=== PATIENT | male | born 1990 | race Two or more races ===

== ENCOUNTER 2024-11-30 04:40 | Inpatient (IN) | payer MEDICAID, SELFPAY ==
[2024-11-30] VITALS (40 sets, daily range): BP systolic 121–169; BP diastolic 73–104; PULSE 87–120; RESP 12–28; TEMP 36.8–38.4; O2SAT 90–99; BMI 36.6
--- NOTE | 2024-11-30 05:03 | XR_ITS ---
Examination: Abdomen sonogram, Limited Date and time of exam: November 30, 2024 0537 hours INDICATIONS: Right upper abdominal pain beginning yesterday Technique: Real-time chavez scale transabdominal sonographic images of the upper abdomen obtained. Findings: Normal gallbladder Normal common bile duct 0.3 cm Pancreas obscured by bowel gas Liver 18 cm fatty infiltration Normal hepatopedal portal venous flow Patent IVC IMPRESSION: Normal gallbladder. Normal common bile duct. Hepatomegaly with fatty liver
--- NOTE | 2024-11-30 05:04 | EDRME_ITS ---
Rapid Medical Screening Exam [facility] Arrival date/time: 11/30/24 04:40 34M with history of HLD and pancreatitis presents to ED with 2 days of RUQ/epigastric pain and N/V. Patient states this feels similar to his last pancreatitis episode. Patient only takes his HLD meds when he remembers. Chief Complaint: Abdominal Pain Vital signs: Vital Signs Temperature 100.0 F 11/30/24 04:53 Pulse Rate 93 11/30/24 04:53 Respiratory Rate 17 11/30/24 04:53 Blood Pressure 141/87 H 11/30/24 04:53 Pulse Oximetry (%) 97 11/30/24 04:53 Oxygen Delivery Method Room Air 11/30/24 04:53
[2024-11-30 05:33] LABS: Lactate (Lactic Acid) 1.2 mMol/L (0.4-2.0)
[2024-11-30 06:00] LABS: Basophils # (Auto) 0.1 Thou/mm3 (0.0-0.2); Basophils % (Auto) 0 % (0-2.5); Eosinophils # (Auto) 0.2 Thou/mm3 (0.0-0.5); Eosinophils % (Auto) 2 % (0-10); Hematocrit 43.1 % (41.0-53.0); Hemoglobin 15.1 g/dL (13.5-16.0); Immature Granulocytes % (Auto) 0 % (0-0); Immature Granulocytes Auto 0.05 Thou/mm3 (0.00-0.00); Lymphocytes # (Auto) 1.6 Thou/mm3 (1.0-4.8); Lymphocytes % (Auto) 11 % (10-50); Mean Corpuscular Hemoglobin 31.8 pg (25.0-35.0); Mean Corpuscular Volume 91 fL (80-100); Monocytes # (Auto) 1.4 Thou/mm3 (0.0-0.8); Monocytes % (Auto) 10 % (0-12); Neutrophils # (Auto) 10.8 Thou/mm3 (1.8-7.7); Neutrophils % (Auto) 76 % (37-80); Nucleated Red Blood Cell % 0 /100 WBC (0); Platelet Count 197 Thou/mm3 (140-440); RDW Standard Deviation 40.6 fL (35.1-43.9); Red Blood Count 4.75 Miln/mm3 (4.50-5.90); White Blood Count 14.2 Thou/mm3 (3.8-10.6)
[2024-11-30] MEDS: RINGERS LACTATED 1000 ML 1,000 ML 999 ML IV ×2 (06:14→10:26)
[2024-11-30] MEDS: MORPHINE SULF INJ 10 MG/ML VIAL 5 MG IVP (06:15)
[2024-11-30] MEDS: ONDANSETRON INJ 2 MG/ML INJ 2 ML 4 MG IVP (06:15)
[2024-11-30 06:27] LABS: Alanine Aminotransferase 25 U/L (10-49); Albumin, Serum 4.6 gm/dL (3.5-5.0); Albumin/Globulin Ratio 1.7 (1.2-2.2); Alcohol, Blood Medical < 3.0 mg/dL (0-10.0); Alkaline Phosphatase 110 U/L (46-116); Anion Gap 16 (7-16); Aspartate Amino Transferase 29 U/L (0-34); BUN/Creatinine Ratio 8 Ratio (12-20); Bilirubin,Total 0.9 mg/dL (0.3-1.2); Blood Urea Nitrogen 8 mg/dL (9-23); Chloride 103 mMol/L (98-107); Globulin 2.7 gm/dL (2.3-3.5); Glucose 109 mg/dL (74-106); Lipase 120 U/L (12-53); Osmolality,Calculated 278 (275-295); Potassium 4.5 mMol/L (3.4-5.1); Procalcitonin 0.09 ng/ml (0.0-0.49); Sodium 140 mMol/L (136-145); Total Protein 7.3 gm/dL (5.7-8.2); Triglycerides 1582 mg/dL (30-150); eGFR > 60 See Note
--- NOTE | 2024-11-30 07:04 | PD.EDADULT ---
ED General RME/HPI General Chief complaint: Abdominal Pain Stated complaint: ABD PAIN Time Seen by Provider: 11/30/24 06:53 Arrival date/time: 11/30/24 04:40 RME / HPI RME / HPI narrative: 11/30/24 04:40 34M with history of HLD and pancreatitis presents to ED with 2 days of RUQ/epigastric pain and N/V. Patient states this feels similar to his last pancreatitis episode. Patient only takes his HLD meds when he remembers. DR. PEBBLES BEYER ED EVALUATION: 34 year old male with past medical history significant for hyperlipidemia and pancreatitis 3 years ago presents to the Emergency Department with complaint of upper abdominal pain with associated nausea and vomiting. No other symptoms reported at this time. Related Data Previous Rx's ?Medication ?Instructions ?Recorded atorvastatin 40 mg tablet 40 mg PO QPM #30 tabs 04/03/22 gemfibrozil 600 mg tablet 600 mg PO BID #60 tabs 04/03/22 Allergies Allergy/AdvReac Type Severity Reaction Status Date / Time No Known Allergies Allergy Verified 11/30/24 04:41 Review of Systems Review of Systems Systems Reviewed: All systems reviewed, normal except as documented Narrative Review of Systems: GEN: No fever, no chills, no weight loss EYES: No discharge, no visual changes, no pain HEENT: No ear pain, no congestion, no sore throat PULM: No shortness of breath, no cough, no congestion CV: No chest pain, no dyspnea on exertion, no palpitations GI: + nausea, + vomiting, no diarrhea, + upper abdominal pain, no constipation : No frequency, no urgency and no dysuria MUSC/SKEL: No joint pain, no back pain SKIN: No rash PSYCH: No hallucinations, no depression HEME/LYMPH: No easy bleeding or bruising tendencies NEURO: No weakness, no headache Past Medical History Social History SMOKING STATUS: Never smoker SUBSTANCE USE: does not use ALCOHOL: Never Past Medical History Comments PMH COMMENT: Hyperlipidemia and pancreatitis 3 years ago. ED Exam Narrative Physical exam: GENERAL APPEARANCE: AxOx4, generally well-appearing, no acute distress. HEENT: NC, AT. MMM. EOMI, clear conjunctiva, oropharynx clear. NECK: Supple without lymphadenopathy. No stiffness or restricted ROM. HEART: Normal rate and regular rhythm, normal S1/S1, no m/r/g LUNGS: CTAB, moving air well. No crackles or wheezes are heard. ABDOMEN: Soft, nontender, nondistended with good bowel sounds heard. BACK: No midline C/T/L spine pain or deformity, No CVAT, no obvious deformity. EXTREMITIES: Without cyanosis, clubbing or edema. MUSCULOSKELETAL: FROM of all major joints, no chest tenderness NEUROLOGICAL: Grossly nonfocal. Alert and oriented, moving all 4 extremities. CN not formally tested but appear grossly intact. Observed to ambulate with normal gait. Skin: Warm and dry without any rash. Course Quality Measures none Orders Category Date Time Status Admit to Inpatient Status Routine Admission 11/30/24 09:36 Active Patient Condition Routine Admission 11/30/24 09:36 Ordered Bedside Blood Glucose Q1HR Care 11/30/24 09:39 Active Clear Liquid Diet - Advance as Tolerated Routine Care 11/30/24 09:42 Ordered IV [Insert IV] STAT Care 11/30/24 06:13 Completed NPO NOW Care 11/30/24 09:37 Active Notify provider NEEDED Care 11/30/24 09:39 Active Notify provider NEEDED Care 11/30/24 09:39 Completed Consult to [employer] Work[employer] Stat Cons 11/30/24 08:15 Ordered Diet Clear Liquid Diet 11/30/24 Lunch Active Diet NPO (NOW) Diet 11/30/24 09:37 Completed US gall bladder Stat Exams 11/30/24 05:03 Completed Alcohol, Blood Medical Stat Lab 11/30/24 05:18 Completed CBC DAILY Lab 12/02/24 09:00 Ordered CBC DAILY Lab 12/03/24 09:00 Ordered CBC DAILY Lab 12/04/24 09:00 Ordered CBC DAILY Lab 12/05/24 09:00 Ordered CBC DAILY Lab 12/06/24 09:00 Ordered CBC Stat Lab 11/30/24 05:18 Completed CMP [Comprehensive Metabolic Panel] Stat Lab 11/30/24 05:18 Completed Comprehensive Metabolic Panel DAILY Lab 12/02/24 09:00 Ordered Comprehensive Metabolic Panel DAILY Lab 12/03/24 09:00 Ordered Comprehensive Metabolic Panel DAILY Lab 12/04/24 09:00 Ordered Comprehensive Metabolic Panel DAILY Lab 12/05/24 09:00 Ordered Comprehensive Metabolic Panel DAILY Lab 12/06/24 09:00 Ordered Lactate (Lactic Acid) Stat Lab 11/30/24 05:18 Completed Lipase Stat Lab 11/30/24 05:18 Completed Potassium Q8H Lab 11/30/24 11:30 Completed Potassium Q8H Lab 11/30/24 17:45 Ordered Potassium Q8H Lab 12/01/24 01:45 Ordered Potassium Q8H Lab 12/01/24 09:45 Ordered Procalcitonin Stat Lab 11/30/24 05:18 Completed Triglycerides Q12H Lab 11/30/24 11:30 Completed Triglycerides Q12H Lab 11/30/24 21:45 Ordered Triglycerides Q12H Lab 12/01/24 09:45 Ordered Triglycerides Stat Lab 11/30/24 05:18 Completed Dextrose 10%-Water 1000 ml [D10w 1000 ml] 1,000 ml Med 11/30/24 09:45 Discontinued IV 75 mls/hr Dextrose 50% Syr [D50w Syringe Abboject] Med 11/30/24 09:38 Active 25 ml IV Q15MIN PRN Dextrose 50% Syr [D50w Syringe Abboject] Med 11/30/24 09:38 Active 50 ml IV Q15MIN PRN Enoxaparin [Lovenox] Med 11/30/24 09:45 Active 40 mg SC QDAY Glucagon Inj Med 11/30/24 09:38 Active 1 mg IM QDAY PRN HYDROmorphone INJ [Dilaudid Inj] Med 11/30/24 09:36 Active 0.25 mg IVP Q4HR PRN Insulin Reg 100 Units/100 ml [Myxredlin] Med 11/30/24 09:45 Active 100 unit in 100 ml IV 0.1 unit/kg/hr Morphine Inj Med 11/30/24 05:03 Discontinued 5 mg IVP X1 ONE Ondansetron Inj [Zofran Inj] Med 11/30/24 05:03 Discontinued 4 mg IVP X1 ONE Ringers Lactated 1000 ml [Lactated Ringers] 1,000 ml Med 11/30/24 05:03 Discontinued IV 999 mls/hr Ringers Lactated 1000 ml [Lactated Ringers] 1,000 ml Med 11/30/24 09:42 Discontinued IV 999 mls/hr Code Status Routine Oth 11/30/24 09:36 Ordered Oxygen Delivery PRN RT 11/30/24 09:36 Active Vital Signs Vital signs: Vital Signs Temperature 100.0 F 11/30/24 04:53 Pulse Rate 93 11/30/24 04:53 Respiratory Rate 17 11/30/24 04:53 Blood Pressure 141/87 H 11/30/24 04:53 Pulse Oximetry (%) 97 11/30/24 04:53 Oxygen Delivery Method Room Air 11/30/24 04:53 Discharge Plan Plan Patient Disposition: Admit Acute Care w/in Hospital Discharge Disposition comment: ICU Problem List Clinical Impression: Acute pancreatitis MDM Narrative MDM hospital course: I, Ynes An am scribing for and in the presence of Dr. Dimas. Clinical Information Provided by patient Medical Records Reviewed [facility] Reviewed last admission discharge dated 04/03/22, patient admitted for the following: Pancreatitis Meds/Rx Considered, not Ordered None Labs/Rad/Tests considered, not Ordered None Chronic Illness/Social Conditions Add or document further as needed: Hyperlipidemia and pancreatitis 3 years ago. Lab Interpretation Labs: interpreted by me Imaging Radiology reports / interpretation(s): Procedure(s): US gall bladder Accession Number(s): [id number] cc: Alex Sloan MD; Landon Boles MD; Vinh Wells PA-C~ Examination: Abdomen sonogram, Limited Date and time of exam: November 30, 2024 0537 hours INDICATIONS: Right upper abdominal pain beginning yesterday Technique: Real-time chavez scale transabdominal sonographic images of the upper abdomen obtained. Findings: Normal gallbladder Normal common bile duct 0.3 cm Pancreas obscured by bowel gas Liver 18 cm fatty infiltration Normal hepatopedal portal venous flow Patent IVC IMPRESSION: Normal gallbladder. Normal common bile duct. Hepatomegaly with fatty liver Dictated By: Landon Boles MD Medication Administration(s) Medication Administration History Dextrose (Dextrose 50%-Water Inj 50 Ml Syringe) 25 ml IV Q15MIN PRN PRN Reason: Blood sugar between 50- 69 mg/dL Stop: 12/30/24 09:37 Dextrose (Dextrose 50%-Water Inj 50 Ml Syringe) 50 ml IV Q15MIN PRN PRN Reason: Blood sugar less than 50 mg/dL Stop: 12/30/24 09:37 Enoxaparin Sodium (Enoxaparin Sod Inj 40 Mg/0.4 Ml Syringe) 40 mg SC QDAY JESI Stop: 12/14/24 09:44 Last Admin: 11/30/24 10:12 Dose: 40 mg Documented By: CG Glucagon (Glucagon Inj 1 Mg Vial) 1 mg IM QDAY PRN PRN Reason: Blood sugar less than 70 mg/dL Stop: 12/30/24 09:37 Hydromorphone HCl (Hydromorphone Inj 2 Mg/Ml Vial) 0.25 mg IVP Q4HR PRN PRN Reason: PAIN Stop: 12/05/24 09:35 Last Admin: 11/30/24 10:39 Dose: 0.25 mg Documented By: CG Insulin Human Regular (Myxredlin) 100 unit in 100 mls @ 9.979 mls/hr IV .Q10H2M JESI Stop: 12/30/24 09:44 Last Admin: 11/30/24 12:01 Dose: 0.1 unit/kg/hr, 9.979 mls/hr Documented By: HR Co-signed By: ER Dextrose (D10w 1000 Ml) 1,000 mls @ 150 mls/hr IV .Q6H40M JESI Stop: 11/30/24 17:07 Last Admin: 11/30/24 12:03 Dose: 150 mls/hr Documented By: HR Discontinued Medications Lactated Ringer's (Lactated Ringers) 1,000 mls @ 999 mls/hr IV .Q1H1M ONE Stop: 11/30/24 06:03 Last Infusion: 11/30/24 07:55 Dose: Infused Documented By: Admin: 11/30/24 06:14 Dose: 999 mls/hr Documented By: CB Dextrose (D10w 1000 Ml) 1,000 mls @ 75 mls/hr IV .[id number] JESI; Protocol Stop: 12/30/24 09:44 Last Admin: 11/30/24 10:09 Dose: 75 mls/hr Documented By: CG Lactated Ringer's (Lactated Ringers) 1,000 mls @ 999 mls/hr IV .Q1H1M ONE Stop: 11/30/24 10:42 Last Infusion: 11/30/24 11:06 Dose: Infused Documented By: Admin: 11/30/24 10:26 Dose: 999 mls/hr Documented By: CG Dextrose (D10w 1000 Ml) 1,000 mls @ 150 mls/hr IV .Q6H40M JESI; Protocol Stop: 12/30/24 10:33 Morphine Sulfate (Morphine Sulf Inj 10 Mg/Ml Vial) 5 mg IVP X1 ONE Stop: 11/30/24 05:04 Last Admin: 11/30/24 06:15 Dose: 5 mg Documented By: CAILIN Ondansetron HCl (Ondansetron Inj 2 Mg/Ml Inj 2 Ml) 4 mg IVP X1 ONE; Protocol Stop: 11/30/24 05:04 Last Admin: 11/30/24 06:15 Dose: 4 mg Documented By: CAILIN Consultations/Discussions re: Management Consult #1: Date/time: 11/30/24 10:19 am Physician, specialty, service, details: Discussed test HPI, PMHx, lab, radiology results and/or management with transitions manager Dr. Bruno. Will admit for further evaluation and management. Accepts patient for admission. Diagnosis Differential diagnosis: acute pacreatitis, chronic pacreatitis, hyperlipidemia Most likely dx, and/or detailed dx discussion: Acute pancreatitis Dispositon Disposition: Admit (ICU)
--- NOTE | 2024-11-30 09:56 | ESHP_ITS ---
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 According to the patient he woke up at midnight with abdominal pain and had a bowel move. After epigastric, initially 6 out of 10 pain progressively worsened and radiated to the left upper quadrant as well. No relief by ibuprofen. Patient also endorses nausea and a temperature of 102F at home, sick contacts but denied any vomiting, diarrhea, recent travel, new medication, scorpion bites, new sexual partners and trauma to his abdomen. Of note patient said over the weekend he drank a 12 pack of beers and ate a lot of carnitas. He also says that his diet usually consists of a lot of fried, fatty foods and in the past 2 days he eats approximately 20 dragon fruits. In 2021 he was admitted to the ICU for hypertriglyceridemia induced pancreatitis and at this time he was diagnosed with hypertriglyceridemia. ED course: BP 124/83, pulse 90, RR 18, temp 98.3 F, SpO2 97% on room air WBC 14.2, glucose 109, triglycerides 1582, lipase 120, lactic acid 1.2, corrected calcium 9. Gallbladder ultrasound showed normal gallbladder, no signs of cholecystitis, hepatomegaly with fatty liver. Pancreas obscured by bowel gas. In the ED patient received 1L LR IVF bolus, morphine 5 Mg IV x 1 Mg IV x 1 Patient will be admitted to the ICU for treatment and management of hypertriglyceridemia pancreatitis. Review of Systems Review of Systems Narrative Review of Systems: GENERAL: Denies fever/chills or diaphoresis. HEENT: Denies headaches or visual changes. Denies discharge. Neuro: Denies unusual weakness or difficulty speaking. CARDIO: Denies chest pain or palpitations. PULM: Denies SOB, coughing or wheezing. GI: As above URO: Denies burning/itching/pain/urinary changes. MSK/EXT/SKIN: Denies joint/skeletal/muscle pain, issues/changes in upper or lower extremities, itchiness, or superficial pain. PSYCH: Cooperative, pleasant mood & affect. The rest of the review of systems is otherwise negative. Past Medical History Past Medical History Comments PMH COMMENT: Past medical history: Hypertriglyceridemia Hyperlipidemia History of hypertriglyceridemia pancreatitis with an ICU admission - 2021 Medication list: NIL Previously was on atorvastatin 40 Mg daily every afternoon and Wegovy. 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 Family History: Mom?hypertriglyceridemia Exam Vital Signs Temp Pulse Resp BP Pulse Ox O2 Del Method 98.3 F 90 18 124/83 97 Room Air 11/30/24 08:32 11/30/24 08:32 11/30/24 08:32 11/30/24 08:32 11/30/24 08:32 11/30/24 08:32 Narrative Exam Constitutional Alert, oriented x 3 and comfortable. Young male HEENT Vision grossly intact. Patent nares. Trachea midline Respiratory Chest normal on inspection and clear auscultation bilaterally on anterior and posterior chest Cardiovascular S1 and S2 audible, RRR. No murmurs carotid bruit. No gross JVD. Abdominal Soft, obese and tender to light palpation epigastrium and left upper quadrant. No guarding or rebound tenderness. Bowel sounds auscultated Genitourinary No bladder tenderness, no flank pain. Normal to palpation Musculoskeletal Extremities tone within normal limits. No LE edema. Neurological CN II - XII grossly intact. Extremity motor and sensation grossly intact. Skin Warm, dry and intact. No apparent lesions. Psychiatric Patient has good affect, is cooperative Results: Labs 11/30/24 05:18 11/30/24 11:30 Labs: Short CBC 11/30/24 Range/Units 05:18 WBC 14.2 H (3.8-10.6) Thou/mm3 Hgb 15.1 (13.5-16.0) g/dL Hct 43.1 (41.0-53.0) % Plt Count 197 (140-440) Thou/mm3 BMP 11/30/24 05:18 Sodium 140 Potassium 4.5 Chloride 103 Carbon Dioxide 21.0 BUN 8 L Creatinine 1.0 Glucose 109 H Calcium 9.0 Liver Function 11/30/24 Range/Units 05:18 Total Bilirubin 0.9 (0.3-1.2) mg/dL AST 29 (0-34) U/L ALT 25 (10-49) U/L Alkaline Phosphatase 110 (46-116) U/L Albumin 4.6 (3.5-5.0) gm/dL Quality Measures Quality Measures none Medications Home Medications and Allergies Allergies Allergy/AdvReac Type Severity Reaction Status Date / Time No Known Allergies Allergy Verified 11/30/24 04:41 Visit Medications Dextrose (Dextrose 50%-Water Inj 50 Ml Syringe) 25 ml IV Q15MIN PRN PRN Reason: Blood sugar between 50- 69 mg/dL Stop: 12/30/24 09:37 Dextrose (Dextrose 50%-Water Inj 50 Ml Syringe) 50 ml IV Q15MIN PRN PRN Reason: Blood sugar less than 50 mg/dL Stop: 12/30/24 09:37 Enoxaparin Sodium (Enoxaparin Sod Inj 40 Mg/0.4 Ml Syringe) 40 mg SC QDAY JESI Stop: 12/14/24 09:44 Glucagon (Glucagon Inj 1 Mg Vial) 1 mg IM QDAY PRN PRN Reason: Blood sugar less than 70 mg/dL Stop: 12/30/24 09:37 Hydromorphone HCl (Hydromorphone Inj 2 Mg/Ml Vial) 0.25 mg IVP Q4HR PRN PRN Reason: PAIN Stop: 12/05/24 09:35 Insulin Human Regular (Myxredlin) 100 unit in 100 mls @ 9.979 mls/hr IV .Q10H2M JESI Stop: 12/30/24 09:44 Dextrose (D10w 1000 Ml) 1,000 mls @ 75 mls/hr IV .[id number] JESI; Protocol Stop: 12/30/24 09:44 Lactated Ringer's (Lactated Ringers) 1,000 mls @ 999 mls/hr IV .Q1H1M ONE Stop: 11/30/24 10:42 Discontinued Medications Lactated Ringer's (Lactated Ringers) 1,000 mls @ 999 mls/hr IV .Q1H1M ONE Stop: 11/30/24 06:03 Last Infusion: 11/30/24 07:55 Dose: Infused Morphine Sulfate (Morphine Sulf Inj 10 Mg/Ml Vial) 5 mg IVP X1 ONE Stop: 11/30/24 05:04 Last Admin: 11/30/24 06:15 Dose: 5 mg Ondansetron HCl (Ondansetron Inj 2 Mg/Ml Inj 2 Ml) 4 mg IVP X1 ONE; Protocol Stop: 11/30/24 05:04 Last Admin: 11/30/24 06:15 Dose: 4 mg Assessment & Plan Plan Patient is a 34-year-old male with a past medical history significant for hypertriglyceridemia and 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 Patient will be admitted to the ICU for treatment and management of hypertriglyceridemia pancreatitis. NEURO No acute problems CVS No acute problems PULM No acute problems GI/Hep Hypertriglyceridemia pancreatitis History of hypertriglyceridemia Elevated Lipase Dx: Lipase 120, triglycerides 1582, lactic acid 1.2, corrected calcium 9. BISAP score; 1 point ? increasing risk of mortality. Rx: Insulin infusion, triglycerides every 12 hourly, potassium every 8 hourly, LR/D5 IVF, pain control with Dilaudid 0.25 Mg IV every 4 hourly as needed. Will recommend patient start on a fibrate +/- statin upon discharge. RRX: Once triglycerides less than 1000 and patient's pain adequately controlled, for downgrade to the floor MASLD Dx: Gallbladder ultrasound showed fatty ultrafiltration of the liver with hepatomegaly Rx: Recommend weight loss and treatment of hypertriglyceridemia RENAL No acute problems HEME/ONC Leukocytosis DDx: reactive, pancreatitis Dx: WBC 14.2 Rx: monitor CBC ENDO Obesity class II Dx:BMI 36.6. Previously patient was on Wegovy but it was discontinued by his PCP. Rx: Recommend low-fat diet and exercise. The patient unable to achieve weight loss with the above recommendations, would recommend he restart a GLP-1 as outpatient. He may also benefit from a bariatric surgery consultation ID No acute problems MSK/DERM No acute problems ICU Health maintenance: Dispo: Admit to ICU for Hypertriglyceridemia pancreatitis Diet: Clear Liquids DVT ppx: Enoxaparin 40mg SC daily GI ppx: None Mechanical ventilattion: No Sedation: NO IV lines: 2 pIV Central line: No Arterial line: No Payne: NO Code status: FULL CODE Plan of care discussed with Attending Dr. Bruno and PGY 3 Dr. Radha Sandoval MD PGY 1 Disclaimer: This note was dictated by speech recognition. Minor errors in divemaster may be present due to voice recognition software.
[2024-11-30] MEDS: DEXTROSE 10%-WATER 1000 ML 1,000 ML 75 ML IV (10:09)
[2024-11-30] MEDS: ENOXAPARIN SOD INJ 40 MG/0.4 ML SYRINGE SC (10:12)
[2024-11-30] MEDS: HYDROmorphone INJ 2 MG/ML VIAL 0.25 MG IVP ×3 (10:39→23:10)
[2024-11-30 11:49] LABS: Potassium 3.9 mMol/L (3.4-5.1)
[2024-11-30 11:55] LABS: Triglycerides 916 mg/dL (30-150)
[2024-11-30] MEDS: INSULIN REG 100 UNITS/100 ML 100 UNIT/100 ML BAG 9.979 UNIT IV ×2 (12:01→21:06)
[2024-11-30] MEDS: DEXTROSE 10%-WATER 1000 ML 1,000 ML 150 ML IV ×3 (12:03→23:54)
--- NOTE | 2024-11-30 13:56 | ESPR_ITS ---
Documentation for date of: 11/30/24 Subjective Subjective Interval history: This is a 34-year-old male who presents to the ER for abdominal pain. The patient states that his abdominal pain began approximately 2 days ago however over the last 12 hours has been pretty constant. The patient states that the pain starts in the epigastrium and is kind of diffuse from there. He states on arrival to the ER he got shooting pain to the right upper quadrant however mostly his pain is epigastric. Denies any radiation to the back to the chest or to his legs. Admits to some nausea but denies any rohan vomiting. Patient states that he has had episode of pancreatitis in the past and this pain feels similar. Notes that he was told that he had high triglycerides and cholesterol in the past however he has been off of his medications since June of this year. Also notes that he had a fever yesterday up to 102 degrees. Denies any shortness of breath, chest pain, cough, diarrhea, constipation, blood in his urine, blood in his stool or additional symptoms. In the ER labs were checked and he was noted to have an elevation in his lipase. Given his history of hypertriglyceridemia a lipid panel was also checked and he was found to have triglycerides of thousand 500. Given the concern for pancreatitis and elevated triglycerides the ICU was consulted. Of note he admits to imbibing 6-12 beers over last weekend as well as eating a significant amount of fried fatty food. This was 4 days prior to presentation. Past medical history: Dyslipidemia, pancreatitis Family history: No significant history reported Social history: Admits to alcohol consumption denies abuse, denies IVDA, lives at home with family Critical Care Note Critical care time (min.): 0 Exam Vital Signs Temp Pulse Resp BP Pulse Ox O2 Del Method 98.9 F 108 H 16 137/77 H 97 Room Air 11/30/24 12:00 11/30/24 13:07 11/30/24 13:07 11/30/24 13:11/30/24 13:11/30/24 08:32 Narrative Exam General-no acute distress, well-appearing, overweight, pleasant and cooperative with exam HEENT-normocephalic, atraumatic, sclera icteric, oral mucosa is hydrated Chest-lungs clear auscultation bilaterally, heart regular rhythmic, no bridge murmurs auscultated on exam, no increased work of breathing Abdomen-soft, generalized discomfort on deep palpation, no rebound, no guarding, no palpable organomegaly, appears to be more uncomfortable in the epigastric area, bowel sounds are present Extremities-no edema, pulses palpable, no mottling, no clubbing, moves all 4 Physical Exam Completion Physical Exam Complete?: Yes 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 Labs 11/30/24 05:18 11/30/24 11:30 Labs: Laboratory Results - last 24 hr 11/30/24 11/30/24 05:18 11:30 WBC 14.2 H RBC 4.75 Hgb 15.1 Hct 43.1 MCV 91 MCH 31.8 MCHC 35.0 RDW Std Deviation 40.6 Plt Count 197 Neut % (Auto) 76 Lymph % (Auto) 11 [place] % (Auto) 10 Eos % (Auto) 2 Baso % (Auto) 0 Neut # (Auto) 10.8 H Lymph # (Auto) 1.6 [place] # (Auto) 1.4 H Eos # (Auto) 0.2 Baso # (Auto) 0.1 Immature Gran # (Auto) 0.05 H Absolute Nucleated RBC 0.00 Immature Gran % 0 Nucleated RBC % 0 Sodium 140 Potassium 4.5 3.9 D Chloride 103 Carbon Dioxide 21.0 Anion Gap 16 BUN 8 L Creatinine 1.0 Estim Creat Clear Calc 111.0 eGFR > 60 BUN/Creatinine Ratio 8 L Glucose 109 H Calculated Osmolality 278 Lactic Acid 1.2 Calcium 9.0 Corrected Calcium 9.0 Total Bilirubin 0.9 AST 29 ALT 25 Alkaline Phosphatase 110 Total Protein 7.3 Albumin 4.6 Globulin 2.7 Albumin/Globulin Ratio 1.7 Triglycerides 1582 H 916 H Lipase 120 H Procalcitonin 0.09 Ethyl Alcohol < 3.0 Assessment & Plan Additional Plan Additional Plan: In summary this is a 34-year-old male being admitted to the ICU for acute pancreatitis and 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 Labs will be obtained every 4 hours since he is on a insulin drip with appropriate potassium replacements. Heme Leukocytosis-likely secondary to pancreatitis ID stable Case discussed with ICU team and ER Labs, imaging and records reviewed Approximately 68 minutes required for evaluation, exam, review, intervention, discussion formulation of plan of care this patient Provider Notation Provider Notation: Although this document has been carefully reviewed, there may still be some phonetic and other typographical errors. These errors are purely grammatical due to imperfections in the software program and should not be construed in any way to compromise the substance of the patient's medical care during this visit. Thank you for the opportunity and privilege in assisting you with this patient's care and management.
[2024-11-30 18:44] LABS: Potassium 4.3 mMol/L (3.4-5.1)
[2024-11-30] MEDS: ACETAMINOPHEN 325 MG TABLET 650 MG PO (18:45)
[2024-11-30 22:31] LABS: Triglycerides 600 mg/dL (30-150)
[2024-12-01] VITALS (22 sets, daily range): BP systolic 124–155; BP diastolic 78–103; PULSE 84–112; RESP 13–24; TEMP 37.1–37.6; O2SAT 92–98
[2024-12-01] MEDS: CALCIUM CARBONATE 600 MG TABLET PO (01:28)
[2024-12-01] MEDS: DEXTROSE 50%-WATER INJ 50 ML SYRINGE IV (02:07)
[2024-12-01 02:19] LABS: Potassium 3.5 mMol/L (3.4-5.1)
[2024-12-01] MEDS: PANTOPRAZOLE 40 MG TABLET PO (03:11)
[2024-12-01] MEDS: HYDROmorphone INJ 2 MG/ML VIAL 0.25 MG IVP (03:14)
[2024-12-01 05:48] LABS: Glucose Estimated Average 97 mg/dL (80-131)
[2024-12-01 06:02] LABS: Cardiac Risk Estimate 6.9 RATIO (4.0-6.7); Cholesterol 264 mg/dL (132-200); HDL Cholesterol 38 mg/dL (40-60); Triglycerides 442 mg/dL (30-150)
[2024-12-01] MEDS: DEXTROSE 10%-WATER 1000 ML 1,000 ML 150 ML IV (06:23)
[2024-12-01] MEDS: INSULIN REG 100 UNITS/100 ML 100 UNIT/100 ML BAG 9.979 UNIT IV (06:23)
[2024-12-01 07:51] LABS: Basophils # (Auto) 0.1 Thou/mm3 (0.0-0.2); Basophils % (Auto) 0 % (0-2.5); Eosinophils # (Auto) 0.1 Thou/mm3 (0.0-0.5); Eosinophils % (Auto) 1 % (0-10); Hematocrit 42.4 % (41.0-53.0); Hemoglobin 14.3 g/dL (13.5-16.0); Immature Granulocytes % (Auto) 0 % (0-0); Immature Granulocytes Auto 0.07 Thou/mm3 (0.00-0.00); Lymphocytes % (Auto) 10 % (10-50); Mean Corpuscular HGB Conc 33.7 g/dl (31.0-37.0); Mean Corpuscular Hemoglobin 31.4 pg (25.0-35.0); Mean Corpuscular Volume 93 fL (80-100); Monocytes # (Auto) 1.9 Thou/mm3 (0.0-0.8); Monocytes % (Auto) 9 % (0-12); Neutrophils # (Auto) 15.7 Thou/mm3 (1.8-7.7); Neutrophils % (Auto) 79 % (37-80); Nucleated Red Blood Cell % 0 /100 WBC (0); Platelet Count 188 Thou/mm3 (140-440); RDW Standard Deviation 43.7 fL (35.1-43.9); Red Blood Count 4.56 Miln/mm3 (4.50-5.90); White Blood Count 19.7 Thou/mm3 (3.8-10.6)
[2024-12-01 08:18] LABS: Alanine Aminotransferase 33 U/L (10-49); Albumin, Serum 4.3 gm/dL (3.5-5.0); Albumin/Globulin Ratio 1.9 (1.2-2.2); Alkaline Phosphatase 98 U/L (46-116); Anion Gap 10 (7-16); Aspartate Amino Transferase 34 U/L (0-34); BUN/Creatinine Ratio 6 Ratio (12-20); Blood Urea Nitrogen 5 mg/dL (9-23); Calcium 8.6 mg/dL (8.3-10.6); Calcium (Corrected) 8.6 mg/dL (8.5-10.1); Carbon Dioxide 28.7 mMol/L (20.0-31.0); Chloride 100 mMol/L (98-107); Creatinine (Component) 0.9 mg/dL (0.6-1.3); Estimated Creatinine Clearance 120.1 mL/min (>60); Globulin 2.3 gm/dL (2.3-3.5); Glucose 59 mg/dL (74-106); Osmolality,Calculated 272 (275-295); Sodium 139 mMol/L (136-145); Total Protein 6.6 gm/dL (5.7-8.2); eGFR > 60 See Note
[2024-12-01] MEDS: ENOXAPARIN SOD INJ 40 MG/0.4 ML SYRINGE SC (08:37)
[2024-12-01] MEDS: ACETAMINOPHEN 325 MG TABLET 650 MG PO (08:37)
--- NOTE | 2024-12-01 11:15 | ESPR_ITS ---
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 According to the patient he woke up at midnight with abdominal pain and had a bowel move. After epigastric, initially 6 out of 10 pain progressively worsened and radiated to the left upper quadrant as well. No relief by ibuprofen. Patient also endorses nausea and a temperature of 102F at home, sick contacts but denied any vomiting, diarrhea, recent travel, new medication, scorpion bites, new sexual partners and trauma to his abdomen. Of note patient said over the weekend he drank a 12 pack of beers and ate a lot of carnitas. He also says that his diet usually consists of a lot of fried, fatty foods and in the past 2 days he eats approximately 20 dragon fruits. In 2021 he was admitted to the ICU for hypertriglyceridemia induced pancreatitis and at this time he was diagnosed with hypertriglyceridemia. ED course: BP 124/83, pulse 90, RR 18, temp 98.3 F, SpO2 97% on room air WBC 14.2, glucose 109, triglycerides 1582, lipase 120, lactic acid 1.2, corrected calcium 9. Gallbladder ultrasound showed normal gallbladder, no signs of cholecystitis, hepatomegaly with fatty liver. Pancreas obscured by bowel gas. In the ED patient received 1L LR IVF bolus, morphine 5 Mg IV x 1 Mg IV x 1 Patient will be admitted to the ICU for treatment and management of hypertriglyceridemia pancreatitis. 12/01/2024: Overnight patient had temperature 101.1 F and blood glucose was 80 which improved after drinking a juice. This morning patient says that his abdominal pain is much improved and that he wants to eat solids. WBC increased to 19.7 from 14.2, K3.5, HbA1c 5%, triglycerides decreased to 442 from 07/02/2001, total cholesterol 269, HDL 38. At this point we will discontinue insulin infusion and downgrade patient to the floor. Anticipate discharge within 24 hours. Will recommend patient be discharged on fibrate's and statins along with following a low-fat diet. Exam Vital Signs Temp Pulse Resp BP Pulse Ox O2 Del Method 98.8 F 94 13 135/90 H 96 Room Air 12/01/24 08:00 12/01/24 10:00 12/01/24 10:00 12/01/24 10:12/01/24 10:00 12/01/24 08:00 Narrative Exam Constitutional Alert, oriented x 3 and comfortable. Young male HEENT Vision grossly intact. Patent nares. Trachea midline Respiratory Chest normal on inspection and clear auscultation bilaterally on anterior and posterior chest Cardiovascular S1 and S2 audible, RRR. No murmurs carotid bruit. No gross JVD. Abdominal Soft, obese and tender to deep palpation epigastrium. No guarding or rebound tenderness. Bowel sounds auscultated Genitourinary No bladder tenderness, no flank pain. Normal to palpation Musculoskeletal Extremities tone within normal limits. No LE edema. Neurological CN II - XII grossly intact. Extremity motor and sensation grossly intact. Skin Warm, dry and intact. No apparent lesions. Psychiatric Patient has good affect, is cooperative Objective Labs 12/01/24 04:39 12/01/24 04:39 Labs: Laboratory Results - last 24 hr 11/30/24 11/30/24 11/30/24 11:30 18:05 21:55 WBC RBC Hgb Hct MCV MCH MCHC RDW Std Deviation Plt Count Neut % (Auto) Lymph % (Auto) [place] % (Auto) Eos % (Auto) Baso % (Auto) Neut # (Auto) Lymph # (Auto) [place] # (Auto) Eos # (Auto) Baso # (Auto) Immature Gran # (Auto) Absolute Nucleated RBC Immature Gran % Nucleated RBC % Sodium Potassium 3.9 D 4.3 Chloride Carbon Dioxide Anion Gap BUN Creatinine Estim Creat Clear Calc eGFR BUN/Creatinine Ratio Glucose Estimated Ave Glu mg/dL Hemoglobin A1c Calculated Osmolality Calcium Corrected Calcium Total Bilirubin AST ALT Alkaline Phosphatase Total Protein Albumin Globulin Albumin/Globulin Ratio Triglycerides 916 H 600 H Cholesterol LDL Cholesterol, Calc HDL Cholesterol Cholesterol/HDL Ratio 12/01/24 12/01/24 02:00 04:39 WBC 19.7 H D RBC 4.56 Hgb 14.3 Hct 42.4 MCV 93 MCH 31.4 MCHC 33.7 RDW Std Deviation 43.7 Plt Count 188 Neut % (Auto) 79 Lymph % (Auto) 10 [place] % (Auto) 9 Eos % (Auto) 1 Baso % (Auto) 0 Neut # (Auto) 15.7 H Lymph # (Auto) 2.0 [place] # (Auto) 1.9 H Eos # (Auto) 0.1 Baso # (Auto) 0.1 Immature Gran # (Auto) 0.07 H Absolute Nucleated RBC 0.00 Immature Gran % 0 Nucleated RBC % 0 Sodium 139 Potassium 3.5 D 4.0 D Chloride 100 Carbon Dioxide 28.7 Anion Gap 10 BUN 5 L Creatinine 0.9 Estim Creat Clear Calc 120.1 eGFR > 60 BUN/Creatinine Ratio 6 L Glucose [address] Glu mg/dL 97 Hemoglobin A1c 5.0 Calculated Osmolality 272 L Calcium 8.6 Corrected Calcium 8.6 Total Bilirubin 1.0 AST 34 ALT 33 Alkaline Phosphatase 98 Total Protein 6.6 Albumin 4.3 Globulin 2.3 Albumin/Globulin Ratio 1.9 Triglycerides 442 H Cholesterol 264 H LDL Cholesterol, Calc TNP HDL Cholesterol 38 L Cholesterol/HDL Ratio 6.9 H Quality Measures Quality Measures none Assessment & Plan Assessment Current Active Medications: Generic Name Dose Route Start Last Admin Trade Name Freq PRN Reason Stop Dose Admin Acetaminophen 650 mg 11/30/24 17:27 12/01/24 08:37 Acetaminophen 325 Mg Tablet PO 12/30/24 17:26 650 mg Q4HR PRN Administration Fever >100 or Pain 1-4 Dextrose 25 ml 11/30/24 09:38 Dextrose 50%-Water Inj 50 Ml Syringe IV 12/30/24 09:37 Q15MIN PRN Blood sugar between 50- 69 mg/dL Dextrose 50 ml 11/30/24 09:38 12/01/24 02:07 Dextrose 50%-Water Inj 50 Ml Syringe IV 12/30/24 09:37 50 ml Q15MIN PRN Administration Blood sugar less than 50 mg/dL Enoxaparin Sodium 40 mg 11/30/24 09:45 12/01/24 08:37 Enoxaparin Sod Inj 40 Mg/0.4 Ml Syringe SC 12/14/24 09:44 40 mg QDAY JESI Administration Glucagon 1 mg 11/30/24 09:38 Glucagon Inj 1 Mg Vial IM 12/30/24 09:37 QDAY PRN Blood sugar less than 70 mg/dL Hydromorphone HCl 0.25 mg 11/30/24 09:36 12/01/24 03:14 Hydromorphone Inj 2 Mg/Ml Vial IVP 12/05/24 09:35 0.25 mg Q4HR PRN Administration PAIN Protocol Plan Patient is a 34-year-old male with a past medical history significant for hypertriglyceridemia and 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 Patient will be admitted to the ICU for treatment and management of hypertriglyceridemia pancreatitis. NEURO No acute problems CVS No acute problems PULM No acute problems GI/Hep Hypertriglyceridemia pancreatitis -RESOLVED History of hypertriglyceridemia Elevated Lipase Dx: Lipase 120, triglycerides 1582 ---> 442. BISAP score; 1 point ? increasing risk of mortality. Rx: Discontinued insulin infusion, will start patient on low-fat/cardiac diet and recommend that patient be tapered down on his pain medication. Will recommend patient start on a fibrate +/- statin upon discharge. RRX: Patient clinically stable for downgrade to the floor MASLD Dx: Gallbladder ultrasound showed fatty ultrafiltration of the liver with hepatomegaly Rx: Recommend weight loss and treatment of hypertriglyceridemia RENAL No acute problems HEME/ONC Leukocytosis DDx: reactive, pancreatitis Dx: WBC 14.2 ---> 19.7 Rx: monitor CBC ENDO Obesity class II Dx:BMI 36.6. Previously patient was on Wegovy but it was discontinued by his PCP. Rx: Recommend low-fat diet and exercise. The patient unable to achieve weight loss with the above recommendations, would recommend he restart a GLP-1 as outpatient. He may also benefit from a bariatric surgery consultation ID No acute problems MSK/DERM No acute problems ICU Health maintenance: Dispo: Downgrade to floor today Diet: Cardiac/low fat DVT ppx: Enoxaparin 40mg SC daily GI ppx: None Mechanical ventilattion: No Sedation: NO IV lines: 2 pIV Central line: No Arterial line: No Payne: NO Code status: FULL CODE Plan of care discussed with Attending Dr. Bruno and PGY 3 Dr. Radha Sandoval MD PGY 1 Disclaimer: This note was dictated by speech recognition. Minor errors in printing press operator may be present due to voice recognition software.
--- NOTE | 2024-12-01 11:42 | ESPR_ITS ---
Documentation for date of: 12/01/24 Subjective Subjective Interval history: This is a 34-year-old male who presents to the ER for abdominal pain. The patient states that his abdominal pain began approximately 2 days ago however over the last 12 hours has been pretty constant. The patient states that the pain starts in the epigastrium and is kind of diffuse from there. He states on arrival to the ER he got shooting pain to the right upper quadrant however mostly his pain is epigastric. Denies any radiation to the back to the chest or to his legs. Admits to some nausea but denies any rohan vomiting. Patient states that he has had episode of pancreatitis in the past and this pain feels similar. Notes that he was told that he had high triglycerides and cholesterol in the past however he has been off of his medications since June of this year. Also notes that he had a fever yesterday up to 102 degrees. Denies any shortness of breath, chest pain, cough, diarrhea, constipation, blood in his urine, blood in his stool or additional symptoms. In the ER labs were checked and he was noted to have an elevation in his lipase. Given his history of hypertriglyceridemia a lipid panel was also checked and he was found to have triglycerides of thousand 500. Given the concern for pancreatitis and elevated triglycerides the ICU was consulted. Of note he admits to imbibing 6-12 beers over last weekend as well as eating a significant amount of fried fatty food. This was 4 days prior to presentation. 12/01- no acute overnight events, trigs have decreased, off insulin gtt, still has some abd discomfort but much better than yesterday, tolerating PO intake Critical Care Note Critical care time (min.): 0 Exam Vital Signs Temp Pulse Resp BP Pulse Ox O2 Del Method 98.8 F 94 13 135/90 H 96 Room Air 12/01/24 08:12/01/24 10:12/01/24 10:12/01/24 10:12/01/24 10:12/01/24 08:00 Narrative Exam Gen- NAD, AAOx4, nl body habitus HEENT- NC/AT, mucosa hydrated, sclera anicteric, EOMI, PERRL Chest- LCTAB, HRRR Abd- s/bs+, mild tenderness in the epigastrium Ext- no edema, pulses palp, no clubbing, no mottling, moves all 4 Physical Exam Completion Physical Exam Complete?: Yes 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 12/01/24 04:39 12/01/24 04:39 Labs: Laboratory Results - last 24 hr 11/30/24 11/30/24 11/30/24 11:30 18:05 21:55 WBC RBC Hgb Hct MCV MCH MCHC RDW Std Deviation Plt Count Neut % (Auto) Lymph % (Auto) [place] % (Auto) Eos % (Auto) Baso % (Auto) Neut # (Auto) Lymph # (Auto) [place] # (Auto) Eos # (Auto) Baso # (Auto) Immature Gran # (Auto) Absolute Nucleated RBC Immature Gran % Nucleated RBC % Sodium Potassium 3.9 D 4.3 Chloride Carbon Dioxide Anion Gap BUN Creatinine Estim Creat Clear Calc eGFR BUN/Creatinine Ratio Glucose Estimated Ave Glu mg/dL Hemoglobin A1c Calculated Osmolality Calcium Corrected Calcium Total Bilirubin AST ALT Alkaline Phosphatase Total Protein Albumin Globulin Albumin/Globulin Ratio Triglycerides 916 H 600 H Cholesterol LDL Cholesterol, Calc HDL Cholesterol Cholesterol/HDL Ratio 12/01/24 12/01/24 02:00 04:39 WBC 19.7 H D RBC 4.56 Hgb 14.3 Hct 42.4 MCV 93 MCH 31.4 MCHC 33.7 RDW Std Deviation 43.7 Plt Count 188 Neut % (Auto) 79 Lymph % (Auto) 10 [place] % (Auto) 9 Eos % (Auto) 1 Baso % (Auto) 0 Neut # (Auto) 15.7 H Lymph # (Auto) 2.0 [place] # (Auto) 1.9 H Eos # (Auto) 0.1 Baso # (Auto) 0.1 Immature Gran # (Auto) 0.07 H Absolute Nucleated RBC 0.00 Immature Gran % 0 Nucleated RBC % 0 Sodium 139 Potassium 3.5 D 4.0 D Chloride 100 Carbon Dioxide 28.7 Anion Gap 10 BUN 5 L Creatinine 0.9 Estim Creat Clear Calc 120.1 eGFR > 60 BUN/Creatinine Ratio 6 L Glucose [address] Glu mg/dL 97 Hemoglobin A1c 5.0 Calculated Osmolality 272 L Calcium 8.6 Corrected Calcium 8.6 Total Bilirubin 1.0 AST 34 ALT 33 Alkaline Phosphatase 98 Total Protein 6.6 Albumin 4.3 Globulin 2.3 Albumin/Globulin Ratio 1.9 Triglycerides 442 H Cholesterol 264 H LDL Cholesterol, Calc TNP HDL Cholesterol 38 L Cholesterol/HDL Ratio 6.9 H Assessment & Plan Additional Plan Additional Plan: In summary this is a 34-year-old male being admitted to the ICU for acute pancreatitis and hypertriglyceridemia 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 Labs will be obtained every 4 hours since he is on a insulin drip with appropriate potassium replacements. - insulin gtt off this AM - Trygs <500 - start niacin and fenofibrate Dyslipidemia- restart statin Heme Leukocytosis-likely secondary to pancreatitis - uptrended from yesterday - reactive in nature ID stable Case discussed with ICU team Labs, imaging and records reviewed pt ok with going home and fu with PCP in 1 week rather than staying in pt for another 24hrs Approximately 35 minutes required for evaluation, exam, review, intervention, discussion formulation of plan of care this patient Provider Notation Provider Notation: Although this document has been carefully reviewed, there may still be some phonetic and other typographical errors. These errors are purely grammatical due to imperfections in the software program and should not be construed in any way to compromise the substance of the patient's medical care during this visit. Thank you for the opportunity and privilege in assisting you with this patient's care and management.
--- NOTE | 2024-12-01 11:43 | PD.RESPRO ---
Documentation for date of: 12/01/24 Exam Vital Signs Temp Pulse Resp BP Pulse Ox O2 Del Method 98.8 F 94 13 135/90 H 96 Room Air 12/01/24 08:00 12/01/24 10:00 12/01/24 10:00 12/01/24 10:00 12/01/24 10:00 12/01/24 08:00 Objective Labs 12/01/24 04:39 12/01/24 04:39 Labs: Laboratory Results - last 24 hr 11/30/24 11/30/24 11/30/24 11:30 18:05 21:55 WBC RBC Hgb Hct MCV MCH MCHC RDW Std Deviation Plt Count Neut % (Auto) Lymph % (Auto) [place] % (Auto) Eos % (Auto) Baso % (Auto) Neut # (Auto) Lymph # (Auto) [place] # (Auto) Eos # (Auto) Baso # (Auto) Immature Gran # (Auto) Absolute Nucleated RBC Immature Gran % Nucleated RBC % Sodium Potassium 3.9 D 4.3 Chloride Carbon Dioxide Anion Gap BUN Creatinine Estim Creat Clear Calc eGFR BUN/Creatinine Ratio Glucose Estimated Ave Glu mg/dL Hemoglobin A1c Calculated Osmolality Calcium Corrected Calcium Total Bilirubin AST ALT Alkaline Phosphatase Total Protein Albumin Globulin Albumin/Globulin Ratio Triglycerides 916 H 600 H Cholesterol LDL Cholesterol, Calc HDL Cholesterol Cholesterol/HDL Ratio 12/01/24 12/01/24 02:00 04:39 WBC 19.7 H D RBC 4.56 Hgb 14.3 Hct 42.4 MCV 93 MCH 31.4 MCHC 33.7 RDW Std Deviation 43.7 Plt Count 188 Neut % (Auto) 79 Lymph % (Auto) 10 [place] % (Auto) 9 Eos % (Auto) 1 Baso % (Auto) 0 Neut # (Auto) 15.7 H Lymph # (Auto) 2.0 [place] # (Auto) 1.9 H Eos # (Auto) 0.1 Baso # (Auto) 0.1 Immature Gran # (Auto) 0.07 H Absolute Nucleated RBC 0.00 Immature Gran % 0 Nucleated RBC % 0 Sodium 139 Potassium 3.5 D 4.0 D Chloride 100 Carbon Dioxide 28.7 Anion Gap 10 BUN 5 L Creatinine 0.9 Estim Creat Clear Calc 120.1 eGFR > 60 BUN/Creatinine Ratio 6 L Glucose [address] Glu mg/dL 97 Hemoglobin A1c 5.0 Calculated Osmolality 272 L Calcium 8.6 Corrected Calcium 8.6 Total Bilirubin 1.0 AST 34 ALT 33 Alkaline Phosphatase 98 Total Protein 6.6 Albumin 4.3 Globulin 2.3 Albumin/Globulin Ratio 1.9 Triglycerides 442 H Cholesterol 264 H LDL Cholesterol, Calc TNP HDL Cholesterol 38 L Cholesterol/HDL Ratio 6.9 H Quality Measures Quality Measures none Assessment & Plan Assessment Current Active Medications: Generic Name Dose Route Start Last Admin Trade Name Freq PRN Reason Stop Dose Admin Acetaminophen 650 mg 11/30/24 17:27 12/01/24 08:37 Acetaminophen 325 Mg Tablet PO 12/30/24 17:26 650 mg Q4HR PRN Administration Fever >100 or Pain 1-4 Dextrose 25 ml 11/30/24 09:38 Dextrose 50%-Water Inj 50 Ml Syringe IV 12/30/24 09:37 Q15MIN PRN Blood sugar between 50- 69 mg/dL Dextrose 50 ml 11/30/24 09:38 12/01/24 02:07 Dextrose 50%-Water Inj 50 Ml Syringe IV 12/30/24 09:37 50 ml Q15MIN PRN Administration Blood sugar less than 50 mg/dL Enoxaparin Sodium 40 mg 11/30/24 09:45 12/01/24 08:37 Enoxaparin Sod Inj 40 Mg/0.4 Ml Syringe SC 12/14/24 09:44 40 mg QDAY JESI Administration Glucagon 1 mg 11/30/24 09:38 Glucagon Inj 1 Mg Vial IM 12/30/24 09:37 QDAY PRN Blood sugar less than 70 mg/dL Hydromorphone HCl 0.25 mg 11/30/24 09:36 12/01/24 03:14 Hydromorphone Inj 2 Mg/Ml Vial IVP 12/05/24 09:35 0.25 mg Q4HR PRN Administration PAIN Protocol
--- NOTE | 2024-12-01 11:48 | PC.SS ---
Initial assessment: patient is a 34-year old male admitted to ICU for pancreatitis. Patient was able to confirm his demographic information. Patient informs living with spouse Ruth and children. Patient identified his Ruth as his emergency contact. Patient reports being independent with ADL's. Patient denies use of DME at home. Patient reports following [facility] in [place] for medical needs, no specific provider. Patient reports the plan is to return when medically cleared for discharge, informs his family will transport home. Patient was provided with community resource handout and information to the [facility] if needed in the future. Patient was receptive to the resources. No needs identified at this time. D/c plan: home Next of kin: spouseRuth
[2024-12-01] MEDS: FENOFIBRATE 145 MG TABLET (NON-FORMULARY) PO (12:37)
--- NOTE | 2024-12-01 13:10 | PC.NURSE ---
AT 1308, pt discharged to home via ambulating, education complete all questions answered with patient agreeable and no further questions at this time, patient in stable condition, AOX4, 0/10 pain, PIVs x2 removed with hemostasis achieved
--- NOTE | 2024-12-01 13:18 | PD.RESDS ---
Planned Discharge Date 12/01/24 DS: Providers Provider Date of admission: 11/30/24 09:48 Primary care physician: Alex Sloan MD Admitting Provider: Nadiya Bruno MD Attending Provider on Admission: Nadiya Bruno MD Consults: 11/30/24 08:15 Consult to Rn Nicu Stat Comment: Consulting Provider: Nadiya Bruno Attending Provider on DC: Thompson Snyder MD Discharging Provider: Thompson Snyder MD Anticipated date of discharge: 12/01/24 DS: Diagnosis Problem List Completed Was Problem List Reviewed/Reconciled?: Yes Hospital Course Hospital Course Hospital course: Hospital course: Mr. Jc is a 34-year-old male with past medical history of hypertriglyceridemia and hypertriglyceridemia induced pancreatitis [address] [facility] emergency department on 11/30/2024 with a chief complaint of abdominal pain since midnight. Patient also admitted to significant alcohol use over the weekend and fatty meal, on presentation patient's triglycerides were significantly elevated at 1582, patient was prescribed fenofibrate and atorvastatin which he stopped taking in June. Patient was admitted to intensive care unit, was started on insulin drip, patient during hospitalization did have temperature of 101.1, was given Tylenol, patient's fever was likely secondary to acute pancreatitis. Earlier this morning patient's abdominal pain significantly improved, patient was started on diet, patient was downgraded to hospitalist service. Patient reported that he is feeling well, requesting discharge, patient was able to tolerate diet well. Further plan is to discharge patient and follow-up outpatient in 1 week with repeat lipid panel and CMP. Patient will be discharged on fenofibrate and atorvastatin, patient advised to continue low-fat diet, abstain from alcohol use. Patient is stable for discharge, patient responded well to hospital treatment. Discharge diagnosis: #Acute pancreatitis #Hypertriglyceridemia #MASLD #Leukocytosis #Obesity class II Case discussed with Attending Dr. Williamson. Rafa Chau PGY1 Disclaimer: This note was dictated by speech recognition. Minor errors in wild animal caretaker may be present due to voice recognition software. Status at Discharge Functional status at discharge: independent ambulation Overall status at discharge: patient is progressing back to baseline Time Spent with Patient Time attestation: Total time spent providing and/or coordinating discharge services: Time spent: Less than 30 minutes Exam Vital Signs Temp Pulse Resp BP Pulse Ox O2 Del Method 98.8 F 94 13 135/90 H 96 Room Air 12/01/24 08:00 12/01/24 10:00 12/01/24 10:00 12/01/24 10:00 12/01/24 10:00 12/01/24 08:00 Narrative Exam Constitutional: Alert, oriented x 3 and comfortable. Young male HEENT: Vision grossly intact. Patent nares. Trachea midline Respiratory: Chest normal on inspection and clear auscultation bilaterally on anterior and posterior chest Cardiovascular: S1 and S2 audible, RRR. No murmurs carotid bruit. No gross JVD. Abdominal: Soft, obese and tender to deep palpation epigastrium. No guarding or rebound tenderness. Bowel sounds auscultated Genitourinary: No bladder tenderness, no flank pain. Normal to palpation Musculoskeletal: Extremities tone within normal limits. No LE edema. Neurological: CN II - XII grossly intact. Extremity motor and sensation grossly intact. Skin: Warm, dry and intact. No apparent lesions. Psychiatric: Patient has good affect, is cooperative Discharge Plan Plan Patient Disposition: HOME (Self Care) Patient condition on transfer: Stable Prescriptions/Referrals Prescriptions/Med Rec: New fenofibrate nanocrystallized 145 mg tablet 145 mg PO QDAY Qty: 30 0RF atorvastatin 40 mg tablet 40 mg PO QPM Qty: 30 0RF Discontinued atorvastatin 40 mg tablet 40 mg PO QPM Qty: 30 3RF gemfibrozil 600 mg tablet 600 mg PO BID Qty: 60 3RF Referrals: Alex Sloan MD [Primary Care Provider] - Mireille Jefferson MD [Resident] - Outpatient Orders (i.e. Home Health, Labs, Imaging): Comprehensive Metabolic Panel (Routine) Timeframe: 1 Week Location: Determined by Patient Ordered By: Rafa Chau Lipid Panel (Routine) Timeframe: 1 Week Location: Determined by Patient Ordered By: Rafa Chau Patient/Caregiver Discharge Instructions Discharge Activity: activity as tolerated Other Discharge Activity Instructions:: Take atorvastatin every night, take fenofibrate every morning. Avoid GLP-1, check with your doctor before resuming. Follow-up patient in clinic in 1 week with repeat lipid panel and CMP. Take low-fat diet, avoid fatty foods and avoid alcohol. Follow-up in [facility] in 1 to 2 weeks or primary care physician in 1 to 2 weeks. Call [phone] to make an appointment Address: [facility], [address], [address], [place], [address] Return to ED if symptoms return or worsen. Other Discharge Diet Instructions: Low Fat Diet, Avoid Alcohol Education Materials: Triglycerides, Low-Fat Cooking Tips, Understanding Your Cholesterol Numbers, Pancreatitis Acute Dc Print Language: Georgian Stand Alone Forms: [employer] Award Info., Patient Portal Info Letter Discharge Order Discharge Orders: Discharge (Routine); Ordered 12/01/24 Ordered By: Rafa Chau Quality Discharge Quality Measures VTE prophylaxis Attestestation MD Attestation I attest that I was physically present for the evaluation, physical examination, lab and imaging review of the patient with the residents. I discussed the case with the residents and agree with the findings and plans of care as documented above. Thompson Williamson MD
== END 2024-12-01 13:08 | disposition home or self-care (01) | DRG 282 ==
LOC: SERX 08:39 → SERHOLD 09:53 → S2SX 11:40
PROVIDERS: Physician Assistant; Student in an Organized Health Care Education/Training Program; Admitting Provider Internal Medicine; Emergency Provider Emergency Medicine; PCP Family Medicine; Visit Provider Internal Medicine
DX: K85.90 Acute pancreatitis without necrosis or infection, unspecified (principal); E78.1 Pure hyperglyceridemia; Z68.36 Body mass index [BMI] 36.0-36.9, adult; E66.812 Obesity, class 2; K76.0 Fatty (change of) liver, not elsewhere classified
CPT/HCPCS: 36415; 76705; 80053; 80061; 80320; 83036; 83605; 83690; 84132; 84145; 84478; 85025; 87081; 96361; 96372; 96374; 96375; 99285; J1171; J1650; J1815; J2270; J2405; J7120; A9270; G0480

== ENCOUNTER → 2024-12-04 | Outpatient (CLI) | payer MEDICAID, SELFPAY ==
[2024-12-04 12:39] LABS: Alanine Aminotransferase 51 U/L (10-49); Albumin, Serum 4.4 gm/dL (3.5-5.0); Albumin/Globulin Ratio 1.5 (1.2-2.2); Anion Gap 10 (7-16); BUN/Creatinine Ratio 17 Ratio (12-20); Bilirubin,Total 0.6 mg/dL (0.3-1.2); Blood Urea Nitrogen 17 mg/dL (9-23); Calcium 9.4 mg/dL (8.3-10.6); Calcium (Corrected) 9.4 mg/dL (8.5-10.1); Carbon Dioxide 27.7 mMol/L (20.0-31.0); Chloride 105 mMol/L (98-107); Cholesterol 250 mg/dL (132-200); Globulin 2.9 gm/dL (2.3-3.5); Glucose 99 mg/dL (74-106); HDL Cholesterol 27 mg/dL (40-60); LDL Cholesterol,Calculated 161 mg/dL (0-130); Osmolality,Calculated 286 (275-295); Potassium 4.6 mMol/L (3.4-5.1); Sodium 143 mMol/L (136-145); Total Protein 7.3 gm/dL (5.7-8.2); Triglycerides 310 mg/dL (30-150); eGFR > 60 See Note
[2024-12-04 12:40] LABS: Alkaline Phosphatase 115 U/L (46-116); Cardiac Risk Estimate 9.3 RATIO (4.0-6.7)
== END | disposition home or self-care (01) ==
LOC: COPL 11:45
DX: K85.90 Acute pancreatitis without necrosis or infection, unspecified (principal)
CPT/HCPCS: 36415; 80053; 80061

== ENCOUNTER 2024-12-06 09:33 | Outpatient (AMB) | payer MEDICAID, SELFPAY ==
[2024-12-06 09:50] VITALS: BP 125/72; PULSE 83; RESP 18; TEMP 36.3; O2SAT 95; BMI 35.6
--- NOTE | 2024-12-06 09:50 | PD.RESCLINIC ---
Vital Signs 12/06/24 09:50 Height 1.65 m Height Method Stated Weight 97.296 kg Weight Measurement Method Standing Scale BMI 35.6 BP 125/72 Blood Pressure Source Automatic Cuff Blood Pressure Location Right Upper Arm Position Sitting Respiration 18 Pulse 83 Pulse Source Monitor Temp 97.3 F Temp Source Temporal Artery Scan Pulse Oximetry (%) 95 Oxygen Delivery Method Room Air Allergies/Meds Allergies & Medications Allergies No Known Allergies Allergy (Verified 12/08/24 13:08) Medication Reconciliation atorvastatin 40 mg tablet 80 mg (2 x 40 mg) PO QPM 30 days #60 tabs 12/06/24 [Rx Confirmed 12/08/24] fenofibrate nanocrystallized 145 mg tablet 160 mg (1.1034 x 145 mg) PO QDAY Hypertriglyceridemia 30 days #33 tabs 12/06/24 [Rx Confirmed 12/08/24] MA Intake Visit Data Collection New Patient or Established: Established Patient (seen at [facility] within 3 years) Seen by Clinical Staff ONLY (RN/MA): No Pain Present Currently: No Pain scale:: 0 Pain Scale Used: [employer]/Numerical Animal Hospital Clerk Required: No PCP or OBGYN visit in last 3 months: No Hx Now: No Do You Feel Safe at Home: Yes Authorities Contacted: N/A Smoking Status Smoking Status: Never smoker Immunization / Flu Flu Vaccine in the Last 12 Months: No Flu Vaccine Exclusion Criteria: No Exclusion Criteria Past Medical History Past Medical History CARDIAC: Negative Cardiac Disorders or Congestive Heart Failure RESPIRATORY: Negative Chronic Obstructive Pulmonary Disease (COPD) or Asthma GENITOURINARY: Negative Renal Disease ENDOCRINE: Negative Diabetes Mellitus Type 1 or Diabetes Mellitus Type 2 HEMATOLOGIC: Negative Sickle Cell Disease Social History SMOKING STATUS: Smoking status: Never smoker ALCOHOL: Alcohol Intake: Current ALCOHOL FREQUENCY: Alcohol Intake Frequency: holidays/special occasions only HOUSING: Housing: House LIVES WITH: Lives With: Family and Spouse Patient Portal Questionairheydi Social History Living Situation History Housing: House Housing Other:: Lives with at home, is independent Tobacco History Smoking Status: Never smoker Alcohol History Alcohol Intake: Current Alcohol Intake Frequency: holidays/special occasions only Domestic Abuse History Do You Feel Safe at Home: Yes Review of Systems Report any current symptoms Only answer those that you have currently: Past Medical History Past Medical History Have you ever been diagnosed with any of the following: Cardiology Problems Congestive Heart Failure: No Respiratory Problems Chronic Obstructive Pulmonary Disease (COPD): No Asthma: No Genital/Urinary Problems Renal Disease: No Endocrine Problems Diabetes Mellitus Type 1: No Diabetes Mellitus Type 2: No Blood Problems Sickle Cell Disease: No History of Present Illness HPI Narrative Dl is a 34 year old male with a past medical history of hypertriglyceridemia with a recent hospital admissionon 11/30/2024 for acute pancreatitis secondary to hypertrilgceridemia and likely underlying alcohol use on the weekends. During hospital admission Triglycerides 1582 and downtrended to 442 on discharge. Patient denied abdominal pain since discharge. Denied nausea or vomiting. Patient has continued to take Atorvastatin 40 mg HS and Fenofibrate 140 mg QDay. Previous admission 3 years ago for acute pancreatitis secondary to hypertriglyceridemia. At that time, patient was started on Atorvastatin but patinet stopped about 1 year ago. Yoanna denied family history of hypertrigolyceridemia. Schedule 3 month follow with Lipid Panel, Lipid [place], CMP, ESR, and CRP. Atorvastatin increased to 80 mg HS and Fenobribrate increased 160 mg Qday. PMH: Hypertriglyceridemia (3 years ago) Pancreatitis (first episode 3 years) Past Surgical History: None Past Family History: Mother-HLD and Diabetes Father- none Home Medication: Fenofibrate 145 mg qday-->160 mg qday Atorvastatin 40 mg-->80 mg Social History: Never Smoker Denied Illicit Drug Use Vaped one year ago Alcohol-7-8 beers (12 oz) on Wednesday Allergies: None Review of Systems Review of Systems Narrative Review of Systems: General appearance: NO weight change, NO fatigue, NO weakness, NO fever, NO chills, NO night sweats, No cough Skin: NO rash, NO itching, NO sores, NO moles HEENT: NO Trauma, NO nausea, NO vomiting, NO visual changes, NO blurry vision, NO double vision, NO tinnitus, NO vertigo, NO ear discharge, NO rhinorrhea, NO stuffiness, NO sneezing, NO allergy, NO epistaxis. NO Hoarseness, NO sore throat, NO swollen neck. Cardiac: NO Palpitations, NO dyspnea on exertion, NO orthopnea, NO paroxysmal nocturnal dyspnea, NO edema Respiratory: NO Shortness of Breath, NO Wheezing, NO Cough, NO Sputum, NO hemoptysis GI:NO appetite, NO nausea, NO vomiting, NO dysphagia, NO changes in bowel frequency, NO stool color, NO diarrhea, NO constipation, NO hemetemesis, NO hemorrhoids, NO melena, NO hematechezia, NO abdominal pain, NO jaundice Renal: NO frequency, NO hesitancy, NO urgency, NO hematuria, NO nocturia, NO incontinence MSK: NO muscle weakness, NO gout, NO arthritis, NO muscle stiffness Neuro: NO headaches, NO tremors, NO weakness, NO paralysis, NO seizures, NO loss of consciousness, NO numbness. Hem: NO anemia, NO easy bruising/bleeding, NO petechiae, NO purpura Endo: NO heat/cold intolerance, NO excessive sweating, NO polyuria, NO polydipsia, NO polyphagia, NO thyroid problems, NO diabetes Pysch: NO mood, NO anxiety, NO depression Objective/Exam Objective Laboratory: General Appearance: Alert and Orientated x3, well-nourished male who is sitting on exam room Thorax/Lungs: Symmetrical with good expansion. Chest and back non-tender. Lungs resonant to percussion. Breath sounds vesicular without crackles, wheezes, or rhonchi Cardiovascular/Peripheral Vascular: No jugular venous distention noted. S1 and S2 heart sounds regular, no murmurs or extra heart sounds auscultated. No peripheral edema noted. Abdomen: Bowel sounds are active. No tenderness to deep or light palpation. Assessment & Plan Diagnosis / Problem List (1) Hypertriglyceridemia: Status: Acute Assessment & Plan: Patient had a recent hospital admission 11/30/2024 for acute pancreatitis secondary to hypertriglyceridemia. Patient stated previously had been started on a statin secondary to high hypertriglyceridemia but had stopped taking medicaiton. Patient denied family history to hypertriglyceridemia. Patient consumes alcohol and consumes greasy food on regular basis Plan: -Increased Fenofibrate to 160 mg qday and Atorvastatin 80 mg PO HS. -Follow up with labs in 3 months lipid panel, BMP, and lipid [place], ERS, CRP (2) Pancreatitis: Status: Acute Qualifiers: Chronicity: chronic Pancreatitis type: other Qualified Code(s): K86.1 - Other chronic pancreatitis Assessment & Plan: Acute pancreatitis likely multi-factorial in the setting of alcohol use and hypertriglyceridemia. This is his second hospitilization for pancreatitis, first one in 2021 for similar presentation. Continue to monitor for development of chronic pancreatitis. Plan: -Follow up with cascade panel -Counseled patient to decrease alcohol intake -Continue to take Atorvastatin and fenofibrate Additional Plan - The patient's plan was discussed with attending Dr. Cuco Girard MD PGY1 Internal Medicine Office Procedures [facility] Level of Care Nursing/Assessment Patient Status: Established Patient Nursing Assessment/Reassessment: Medication Reconciliation, Update PMH in EMR and Vital Signs Coordination of Care: Complex Care and Chronic Disease 1-5, Consent,records obtained, informed consent, Education Simp Pt/Fam and Staff clarify orders Established Patient Charge Established Patient Point Assignment: 85 Established Patient Point Charge: EP Level 3 (80-115)
== END 2024-12-06 10:32 | disposition home or self-care (01) ==
LOC: HODAHC 09:33
PROVIDERS: Supervising Provider Internal Medicine
DX: E78.1 Pure hyperglyceridemia (principal); K85.90 Acute pancreatitis without necrosis or infection, unspecified
CPT/HCPCS: 99213; G0463

== ENCOUNTER 2025-01-12 14:24 | Outpatient (AMB) | payer MEDICAID, SELFPAY ==
[2025-01-12 14:38] VITALS: BP 124/74; PULSE 86; RESP 18; TEMP 36.4; O2SAT 93; BMI 36.1
--- NOTE | 2025-01-12 14:38 | PD.RESCLINIC ---
Vital Signs 01/12/25 14:38 Height 1.65 m Height Method Stated Weight 98.543 kg Weight Measurement Method Standing Scale BMI 36.1 BP 124/74 Blood Pressure Source Automatic Cuff Blood Pressure Location Right Upper Arm Position Sitting Respiration 18 Pulse 86 Pulse Source Monitor Temp 97.6 F Temp Source Temporal Artery Scan Pulse Oximetry (%) 93 L Oxygen Delivery Method Room Air Allergies/Meds Allergies & Medications Allergies No Known Allergies Allergy (Verified 01/12/25 14:39) Medication Reconciliation atorvastatin 40 mg tablet 80 mg (2 x 40 mg) PO QPM 30 days #60 tabs 12/06/24 [Rx Confirmed 01/12/25] fenofibrate nanocrystallized 145 mg tablet 160 mg (1.1034 x 145 mg) PO QDAY Hypertriglyceridemia 1 month #33 tabs 01/12/25 [Rx] prednisone 10 mg tablets in a dose pack 10 mg PO DIRECTED Elbow Pain #21 tabs 01/12/25 [Rx] terbinafine HCl 250 mg tablet 250 mg PO QDAY Onychomycosis 1 month #30 tabs 01/12/25 [Rx] MA Intake Visit Data Collection New Patient or Established: Established Patient (seen at [facility] within 3 years) Seen by Clinical Staff ONLY (RN/MA): No Pain Present Currently: No Pain scale:: 0 Pain Scale Used: [employer]/Numerical Cultured Marble Products Maker Required: No PCP or OBGYN visit in last 3 months: No Hx Now: No Do You Feel Safe at Home: Yes Authorities Contacted: N/A Smoking Status Smoking Status: Never smoker Immunization / Flu Flu Vaccine in the Last 12 Months: No Flu Vaccine Exclusion Criteria: No Exclusion Criteria Past Medical History Past Medical History CARDIAC: Negative Cardiac Disorders or Congestive Heart Failure RESPIRATORY: Negative Chronic Obstructive Pulmonary Disease (COPD) or Asthma GENITOURINARY: Negative Renal Disease ENDOCRINE: Negative Diabetes Mellitus Type 1 or Diabetes Mellitus Type 2 HEMATOLOGIC: Negative Sickle Cell Disease Social History SMOKING STATUS: Smoking status: Never smoker ALCOHOL: Alcohol Intake: Current ALCOHOL FREQUENCY: Alcohol Intake Frequency: holidays/special occasions only HOUSING: Housing: House LIVES WITH: Lives With: Family and Spouse Patient Portal Questionaires Social History Living Situation History Housing: House Housing Other:: Lives with at home, is independent Tobacco History Smoking Status: Never smoker Alcohol History Alcohol Intake: Current Alcohol Intake Frequency: holidays/special occasions only Domestic Abuse History Do You Feel Safe at Home: Yes Review of Systems Report any current symptoms Only answer those that you have currently: Past Medical History Past Medical History Have you ever been diagnosed with any of the following: Cardiology Problems Congestive Heart Failure: No Respiratory Problems Chronic Obstructive Pulmonary Disease (COPD): No Asthma: No Genital/Urinary Problems Renal Disease: No Endocrine Problems Diabetes Mellitus Type 1: No Diabetes Mellitus Type 2: No Blood Problems Sickle Cell Disease: No History of Present Illness HPI Parrish Lizama is a 34 year old male with a past medical history of hypertriglyceridemia with a recent hospital admissionon 11/30/2024 for acute pancreatitis secondary to hypertrilgceridemia and likely underlying alcohol use on the weekends. During hospital admission Triglycerides 1582 and downtrended to 442 on discharge. Patient denied abdominal pain since discharge. Denied nausea or vomiting. Patient has continued to take Atorvastatin 40 mg HS and Fenofibrate 140 mg QDay. Previous admission 3 years ago for acute pancreatitis secondary to hypertriglyceridemia. At that time, patient was started on Atorvastatin but patinet stopped about 1 year ago. Yoanna denied family history of hypertrigolyceridemia. Schedule 3 month follow with Lipid Panel, Lipid [place], CMP, ESR, and CRP. Atorvastatin increased to 80 mg HS and Fenobribrate increased 160 mg Qday. 01/12/2025: Thaddeus has a chief complain of discoloration of fail and thickening of nail on going for several months since getting a pedicure at a spa-->3 month of Terbinafine Patient is also complaining of elbow pain that worsens with extension for several weeks--->Prednisone ebenezer prescribed. Patient also required medication refill including Fenofribrate. PMH: Hypertriglyceridemia (3 years ago) Pancreatitis (first episode 3 years) Past Surgical History: None Past Family History: Mother-HLD and Diabetes Father- none Home Medication: Fenofibrate 145 mg qday-->160 mg qday Atorvastatin 40 mg-->80 mg New* Prednisone ebenezer New* Terbinafine 12 weeks Social History: Never Smoker Denied Illicit Drug Use Vaped one year ago Alcohol-7-8 beers (12 oz) on Wednesday Allergies: None Review of Systems Review of Systems Narrative Review of Systems: same as above Objective/Exam Narrative Physical exam: General Appearance: Alert and Orientated x3, well-nourished male who is sitting on exam room. Right foot digits 1-3 noted thickening and yellow discoloration. Left foot digits 2 appears thickened. Dull pain of right elbow upon extension. NO swelling noted. Thorax/Lungs: Symmetrical with good expansion. Chest and back non-tender. Lungs resonant to percussion. Breath sounds vesicular without crackles, wheezes, or rhonchi Cardiovascular/Peripheral Vascular: No jugular venous distention noted. S1 and S2 heart sounds regular, no murmurs or extra heart sounds auscultated. No peripheral edema noted. Abdomen: Bowel sounds are active. No tenderness to deep or light palpation. Assessment & Plan Diagnosis / Problem List (1) Onychomycosis: Status: Acute Assessment & Plan: Patient complaining of thickening of nails and discoloration after visiting Spa/Nail salon. Plan: -12 weeks of Terbinafine (2) Tendonitis of elbow, right: Status: Acute Assessment & Plan: Patient complaining of right elbow pain with extension. No swelling noted. Plan: -Predinisone 10 mg PO, Ebenezer -Over the counter NSAIDs -Uric Acid ordered (3) Pancreatitis: Status: Acute Qualifiers: Chronicity: chronic Pancreatitis type: other Qualified Code(s): K86.1 - Other chronic pancreatitis Assessment & Plan: Acute pancreatitis likely multi-factorial in the setting of alcohol use and hypertriglyceridemia. This is his second hospitilization for pancreatitis, first one in 2021 for similar presentation. Continue to monitor for development of chronic pancreatitis. Plan: -Follow up with cascade panel -Counseled patient to decrease alcohol intake -Continue to take Atorvastatin and fenofibrate (4) Hypertriglyceridemia: Status: Acute Assessment & Plan: Patient had a recent hospital admission 11/30/2024 for acute pancreatitis secondary to hypertriglyceridemia. Patient stated previously had been started on a statin secondary to high hypertriglyceridemia but had stopped taking medicaiton. Patient denied family history to hypertriglyceridemia. Patient consumes alcohol and consumes greasy food on regular basis Plan: -Increased Fenofibrate to 160 mg qday and Atorvastatin 80 mg PO HS. -Follow up with labs in 3 months lipid panel, BMP, and lipid [place], ERS, CRP Plan - The patient's plan was discussed with attending Dr. Chrissie Girard MD PGY2 Internal Medicine Orders: Orders Lipid Panel 01/12/25 Comprehensive Metabolic Panel 01/12/25 K86.1 - Other chronic pancreatitis XR elbow RT 2V 01/18/25 Uric Acid 01/12/25 M25.529 - Pain in unspecified elbow Additional Assessment Attending note: I, Raymond Norwood MD, attest that I was physically present for the barba portions of the service and evaluated the patient with the resident and I reviewed and discussed the case with the resident and agree with the resident's findings and plans of care as documented above. Raymond Norwood MD Office Procedures [facility] Level of Care Nursing/Assessment Patient Status: Established Patient Nursing Assessment/Reassessment: Medication Reconciliation, Update PMH in EMR and Vital Signs Coordination of Care: Complex Care and Chronic Disease 1-5, Consent,records obtained, informed consent, Education Simp Pt/Fam and Staff clarify orders Established Patient Charge Established Patient Point Assignment: 85 Established Patient Point Charge: EP Level 3 (80-115)
== END 2025-01-12 15:21 | disposition home or self-care (01) ==
LOC: HODAHC 14:24
PROVIDERS: Supervising Provider Internal Medicine
DX: B35.1 Tinea unguium (principal); L60.8 Other nail disorders; L60.2 Onychogryphosis; M77.8 Other enthesopathies, not elsewhere classified; K86.1 Other chronic pancreatitis; Z71.41 Alcohol abuse counseling and surveillance of alcoholic; E78.1 Pure hyperglyceridemia
CPT/HCPCS: 99213; G0463

== ENCOUNTER → 2025-01-18 | Outpatient (CLI) | payer MEDICAID, SELFPAY ==
--- NOTE | 2025-01-18 08:17 | XR_ITS ---
Examination: Right elbow 2 views Technique one AP lateral right elbow 2 views Date and time: January 18, 2025 0818 hours INDICATIONS: Right elbow pain beginning 5 months ago. FINDINGS: No fracture or dislocation. No elbow effusion No significant arthritic change IMPRESSION: No fracture or significant arthritic change
[2025-01-18 09:38] LABS: Alanine Aminotransferase 60 U/L (10-49); Albumin, Serum 4.4 gm/dL (3.5-5.0); Albumin/Globulin Ratio 1.8 (1.2-2.2); Alkaline Phosphatase 110 U/L (46-116); Anion Gap 10 (7-16); Aspartate Amino Transferase 38 U/L (0-34); BUN/Creatinine Ratio 16 Ratio (12-20); Bilirubin,Total 1.1 mg/dL (0.3-1.2); Blood Urea Nitrogen 14 mg/dL (9-23); Calcium 9.0 mg/dL (8.3-10.6); Calcium (Corrected) 9.0 mg/dL (8.5-10.1); Carbon Dioxide 26.3 mMol/L (20.0-31.0); Cardiac Risk Estimate 3.9 RATIO (4.0-6.7); Chloride 106 mMol/L (98-107); Cholesterol 116 mg/dL (132-200); Creatinine (Component) 0.9 mg/dL (0.6-1.3); Globulin 2.5 gm/dL (2.3-3.5); Glucose 101 mg/dL (74-106); HDL Cholesterol 30 mg/dL (40-60); LDL Cholesterol,Calculated 39 mg/dL (0-130); Osmolality,Calculated 283 (275-295); Potassium 4.2 mMol/L (3.4-5.1); Sodium 142 mMol/L (136-145); Total Protein 6.9 gm/dL (5.7-8.2); Triglycerides 234 mg/dL (30-150); Uric Acid 5.9 mg/dL (3.7-9.2); eGFR > 60 See Note
== END | disposition home or self-care (01) ==
LOC: CDIM 07:56 → COPL 08:28
PROVIDERS: Visit Provider Radiology Diagnostic Radiology
DX: M25.521 Pain in right elbow (principal); K86.1 Other chronic pancreatitis; M25.529 Pain in unspecified elbow
CPT/HCPCS: 36415; 73070; 80053; 80061; 84550

== ENCOUNTER 2025-04-06 13:01 | Outpatient (AMB) | payer MEDICAID, SELFPAY ==
[2025-04-06 13:40] VITALS: BP 122/84; PULSE 86; RESP 16; TEMP 36.4; O2SAT 96; BMI 37.0
--- NOTE | 2025-04-06 13:40 | PD.RESCLINIC ---
Vital Signs 04/06/25 13:40 Height 1.65 m Height Method Stated Weight 100.924 kg Weight Measurement Method Standing Scale BMI 37.0 BP 122/84 Blood Pressure Source Automatic Cuff Blood Pressure Location Right Upper Arm Position Sitting Respiration 16 Pulse 86 Pulse Source Monitor Temp 97.6 F Temp Source Temporal Artery Scan Pulse Oximetry (%) 96 Oxygen Delivery Method Room Air Allergies/Meds Allergies & Medications Allergies No Known Allergies Allergy (Verified 04/06/25 13:42) Medication Reconciliation fenofibrate nanocrystallized 145 mg tablet 160 mg (1.1034 x 145 mg) PO QDAY Hypertriglyceridemia 1 month #33 tabs 01/12/25 [Rx Confirmed 04/06/25] terbinafine HCl 250 mg tablet 250 mg PO QDAY Onychomycosis 1 month #30 tabs 01/12/25 [Rx Confirmed 04/06/25] atorvastatin 80 mg tablet 80 mg PO QHS 1 month #30 tabs 03/06/25 [Rx Confirmed 04/06/25] MA Intake Visit Data Collection Pain scale:: 0 PCP or OBGYN visit in last 3 months: No Smoking Status Smoking Status: Never smoker Immunization / Flu Flu Vaccine in the Last 12 Months: No Flu Vaccine Exclusion Criteria: No Exclusion Criteria Past Medical History Past Medical History CARDIAC: Negative Cardiac Disorders or Congestive Heart Failure RESPIRATORY: Negative Chronic Obstructive Pulmonary Disease (COPD) or Asthma GENITOURINARY: Negative Renal Disease ENDOCRINE: Negative Diabetes Mellitus Type 1 or Diabetes Mellitus Type 2 HEMATOLOGIC: Negative Sickle Cell Disease Social History SMOKING STATUS: Smoking status: Never smoker ALCOHOL: Alcohol Intake: Current ALCOHOL FREQUENCY: Alcohol Intake Frequency: holidays/special occasions only HOUSING: Housing: House LIVES WITH: Lives With: Family and Spouse Patient Portal [place] Social History Living Situation History Housing: House Housing Other:: Lives with at home, is independent Tobacco History Smoking Status: Never smoker Alcohol History Alcohol Intake: Current Alcohol Intake Frequency: holidays/special occasions only Review of Systems Report any current symptoms Only answer those that you have currently: Past Medical History Past Medical History Have you ever been diagnosed with any of the following: Cardiology Problems Congestive Heart Failure: No Respiratory Problems Chronic Obstructive Pulmonary Disease (COPD): No Asthma: No Genital/Urinary Problems Renal Disease: No Endocrine Problems Diabetes Mellitus Type 1: No Diabetes Mellitus Type 2: No Blood Problems Sickle Cell Disease: No History of Present Illness HPI Narrative Patient is a 34 year old male with a past medical history of hypertriglyceridemia with a recent hospital admission on 11/30/2024 for acute pancreatitis secondary to hypertriglyceridemia and likely underlying alcohol use on the weekends. During hospital admission Triglycerides 1582 and downtrended to 442 on discharge. Patient denied abdominal pain since discharge. Denied nausea or vomiting. Patient has continued to take Atorvastatin 40 mg HS and Fenofibrate 140 mg QDay. Previous admission 3 years ago for acute pancreatitis secondary to hypertriglyceridemia. At that time, patient was started on Atorvastatin but patinet stopped about 1 year ago. Brendenn denied family history of hypertrigolyceridemia. Schedule 3 month follow with Lipid Panel, Lipid [place], CMP, ESR, and CRP. Atorvastatin increased to 80 mg HS and Fenobribrate increased 160 mg Qday. 01/12/2025: Patient has a chief complain of discoloration of fail and thickening of nail on going for several months since getting a pedicure at a spa-->3 month of Terbinafine. Patient is also complaining of elbow pain that worsens with extension for several weeks send home Prednisone yvette prescribed. Patient also required medication refill including Fenofribrate. 04/06/2025: The patient presents to the clinic for a 3-month follow-up to review labs for hypertriglyceridemia and onychomycosis. He reports feeling well overall and denies nausea, vomiting, or abdominal pain. He states he is trying to maintain a healthy diet and has increased his walking as part of his exercise routine. Regarding his right foot onychomycosis, he notes no significant improvement and admits to skipping some doses of terbinafine. However, he continues other medications. Encourage patient to increased nail hygiene efforts, including regular nail trimming and home pedicures. Patient reports improved right tendinitis of the elbow. Follow-up labs show an unremarkable BMP, with a lipid panel indicating improved triglycerides at 234 mg/dL and cholesterol at 116 mg/dL. Plan for the patient is to to follow-up in 3 months and repeat BMP lipid panel. Also podiatry referral for unresolved onychomycosis. Objective/Exam Narrative Physical exam: General: Alert, no acute distress.Conversational and non-toxic appearing. Skin: Warm, dry, intact. No rash or ecchymoses. Head: Normocephalic, atraumatic. Eye: Normal conjunctiva, PERRL. Throat: Oral mucosa moist. No obvious lesions in oropharynx. Cardiovascular: Regular rate and rhythm, no murmur, +S1/S2. Respiratory: Lungs are clear to auscultation, respirations unlabored, no crackles, no wheezing. Gastrointestinal: Soft, nontender, non-distended. No guarding or rebound tenderness. Extremities: Right toe onychomycosis. No edema, no cyanosis, no clubbing. Neuro: Alert and oriented x3.No focal deficits observed. Conversant, moving all extremities. No overt cerebellar signs/incoordination. Psychiatric: Cooperative, appropriate affect. Assessment & Plan Diagnosis / Problem List (1) Hypertriglyceridemia: Status: Acute Assessment & Plan: Patient had a recent hospital admission 11/30/2024 for acute pancreatitis secondary to hypertriglyceridemia. Patient stated previously had been started on a statin secondary to high hypertriglyceridemia but had stopped taking medication. Patient denied family history to hypertriglyceridemia. Patient reports stopping alcohol intake and reducing greasy food on regular basis. Lipid panel showed improved triglycerides at 234 mg/dL and cholesterol at 116 mg/dL. Plan: - BMP and lipid panel ordered - Follow-up with PCP in 3 months for lab results - Continue with Fenofibrate 160 mg QDAY and atorvastatin 80mg PO HS - Encourage lifestyle and diet changes to cut back on sugar and refined carbs, avoid excess alcohol, continue increase physical activity (2) Onychomycosis: Status: Acute Assessment & Plan: Patient complaining of thickening of nails and discoloration after visiting Spa/Nail salon. Currently noted some mild improvement from last visit. Plan: - Podiatry referral - Encouraged to treatment clean nose regularly - Finish course of the Terbinafine Orders: Referrals Podiatry Additional Plan Patient seen and assessed under supervision of attending physician . Yina Morgan MD PGY-1, Internal Medicine Please note: this document was transcribed using voice recognition technology; minor inaccuracies may be present. Office Procedures [facility] Level of Care Nursing/Assessment Patient Status: Established Patient Nursing Assessment/Reassessment: Medication Reconciliation, Update PMH in EMR and Vital Signs Coordination of Care: Complex Care and Chronic Disease 1-5, Education Complex Pt/Fam, Lab and Imaging orders, Results/Orders obtained and Staff clarify orders Established Patient Charge Established Patient Point Assignment: 105 Established Patient Point Charge: EP Level 3 (80-115)
== END 2025-04-06 14:27 | disposition home or self-care (01) ==
LOC: HODAHC 13:01
PROVIDERS: Supervising Provider Internal Medicine
DX: E78.1 Pure hyperglyceridemia (principal); B35.1 Tinea unguium
CPT/HCPCS: 99213; G0463

== ENCOUNTER → 2025-06-05 | Outpatient (CLI) | payer MEDICAID, SELFPAY ==
[2025-06-05 10:03] LABS: Anion Gap 10 (7-16); BUN/Creatinine Ratio 12 Ratio (12-20); Blood Urea Nitrogen 12 mg/dL (9-23); Calcium 9.8 mg/dL (8.3-10.6); Carbon Dioxide 28.3 mMol/L (20.0-31.0); Cardiac Risk Estimate 3.0 RATIO (4.0-6.7); Chloride 107 mMol/L (98-107); Cholesterol 91 mg/dL (132-200); Creatinine (Component) 1.0 mg/dL (0.6-1.3); Glucose 96 mg/dL (74-106); HDL Cholesterol 30 mg/dL (40-60); LDL Cholesterol,Calculated 32 mg/dL (0-130); Osmolality,Calculated 288 (275-295); Potassium 5.2 mMol/L (3.4-5.1); Sodium 145 mMol/L (136-145); Triglycerides 146 mg/dL (30-150); eGFR > 60 See Note
== END | disposition home or self-care (01) ==
LOC: COPL 08:26
DX: E78.1 Pure hyperglyceridemia (principal)
CPT/HCPCS: 36415; 80048; 80061

== ENCOUNTER 2025-06-13 12:59 | Outpatient (AMB) | payer MEDICAID, SELFPAY ==
[2025-06-13 13:04] VITALS: BP 122/78; PULSE 78; RESP 18; TEMP 36.4; O2SAT 94; BMI 35.9
--- NOTE | 2025-06-13 13:04 | PD.RESCLINIC ---
Vital Signs 06/13/25 13:04 Height 1.65 m Height Method Stated Weight 97.976 kg Weight Measurement Method Standing Scale BMI 35.9 BP 122/78 Blood Pressure Source Automatic Cuff Blood Pressure Location Right Upper Arm Position Sitting Respiration 18 Pulse 78 Pulse Source Monitor Temp 97.5 F Temp Source Temporal Artery Scan Pulse Oximetry (%) 94 L Oxygen Delivery Method Room Air Allergies/Meds Allergies & Medications Allergies No Known Allergies Allergy (Verified 06/13/25 13:06) Medication Reconciliation fenofibrate nanocrystallized 145 mg tablet 160 mg (1.1034 x 145 mg) PO QDAY Hypertriglyceridemia 1 month #33 tabs 01/12/25 [Rx Confirmed 06/13/25] terbinafine HCl 250 mg tablet 250 mg PO QDAY Onychomycosis 1 month #30 tabs 01/12/25 [Rx Confirmed 06/13/25] atorvastatin 40 mg tablet (Lipitor) 40 mg PO QHS HYPERLIPIDEMIA #30 tabs 06/13/25 [Rx] MA Intake Visit Data Collection New Patient or Established: Established Patient (seen at [facility] within 3 years) Seen by Clinical Staff ONLY (RN/MA): No Pain Present Currently: No Pain scale:: 0 Pain Scale Used: [place]/Numerical [employer] Emergency Care Technician Required: No PCP or OBGYN visit in last 3 months: Yes Do You Feel Safe at Home: Yes Authorities Contacted: N/A Smoking Status Smoking Status: Never smoker Immunization / Flu Flu Vaccine in the Last 12 Months: No Flu Vaccine Exclusion Criteria: Refused by Patient Past Medical History Past Medical History CARDIAC: Negative Cardiac Disorders or Congestive Heart Failure RESPIRATORY: Negative Chronic Obstructive Pulmonary Disease (COPD) or Asthma GENITOURINARY: Negative Renal Disease ENDOCRINE: Negative Diabetes Mellitus Type 1 or Diabetes Mellitus Type 2 HEMATOLOGIC: Negative Sickle Cell Disease Social History SMOKING STATUS: Smoking status: Never smoker ALCOHOL: Alcohol Intake: Current ALCOHOL FREQUENCY: Alcohol Intake Frequency: holidays/special occasions only HOUSING: Housing: House LIVES WITH: Lives With: Family and Spouse Patient Portal Questionaires Social History Living Situation History Housing: House Housing Other:: Lives with at home, is independent Tobacco History Smoking Status: Never smoker Alcohol History Alcohol Intake: Current Alcohol Intake Frequency: holidays/special occasions only Domestic Abuse History Do You Feel Safe at Home: Yes Review of Systems Report any current symptoms Only answer those that you have currently: Past Medical History Past Medical History Have you ever been diagnosed with any of the following: Cardiology Problems Congestive Heart Failure: No Respiratory Problems Chronic Obstructive Pulmonary Disease (COPD): No Asthma: No Genital/Urinary Problems Renal Disease: No Endocrine Problems Diabetes Mellitus Type 1: No Diabetes Mellitus Type 2: No Blood Problems Sickle Cell Disease: No History of Present Illness HPI Narrative Patient is a 34 year old male with a past medical history of hypertriglyceridemia with a recent hospital admission on 11/30/2024 for acute pancreatitis secondary to hypertriglyceridemia and likely underlying alcohol use on the weekends. During hospital admission Triglycerides 1582 and downtrended to 442 on discharge. Patient denied abdominal pain since discharge. Denied nausea or vomiting. Patient has continued to take Atorvastatin 40 mg HS and Fenofibrate 140 mg QDay. Previous admission 3 years ago for acute pancreatitis secondary to hypertriglyceridemia. At that time, patient was started on Atorvastatin but patinet stopped about 1 year ago. Pateitn denied family history of hypertrigolyceridemia. Schedule 3 month follow with Lipid Panel, Lipid [place], CMP, ESR, and CRP. Atorvastatin increased to 80 mg HS and Fenobribrate increased 160 mg Qday. 01/12/2025: Patient has a chief complain of discoloration of fail and thickening of nail on going for several months since getting a pedicure at a spa-->3 month of Terbinafine. Patient is also complaining of elbow pain that worsens with extension for several weeks send home Prednisone yvette prescribed. Patient also required medication refill including Fenofribrate. 04/06/2025: The patient presents to the clinic for a 3-month follow-up to review labs for hypertriglyceridemia and onychomycosis. He reports feeling well overall and denies nausea, vomiting, or abdominal pain. He states he is trying to maintain a healthy diet and has increased his walking as part of his exercise routine. Regarding his right foot onychomycosis, he notes no significant improvement and admits to skipping some doses of terbinafine. However, he continues other medications. Encourage patient to increased nail hygiene efforts, including regular nail trimming and home pedicures. Patient reports improved right tendinitis of the elbow. Follow-up labs show an unremarkable BMP, with a lipid panel indicating improved triglycerides at 234 mg/dL and cholesterol at 116 mg/dL. Plan for the patient is to to follow-up in 3 months and repeat BMP lipid panel. Also podiatry referral for unresolved onychomycosis. 06/13/2025: Patient presents to the clinic for a 3months follow-up for lab review for hypertriglyceridemia and follow-up onychomycosis. Overall patient reports feeling well, no nausea, vomiting, abdominal pain, changes in bowel movement. Patient stated that he is trying to stay active and helping his versus sitting. In regards to to onychomycosis, patient was unable to obtain podiatry referral. However upon physical evaluation noted significant improvement from last appointment. Patient reports doing self pedicure and nails hygiene and taking his medication terbinafine. Labs are reviewed and regards to lipid panel and CMP noted significant improvement in triglyceride from 234-146. Lipid panel is unremarkable. Encouraged to continue with a healthy lifestyle. Will repeat BMP and lipid panel for follow-up in 3 months. Noted a potassium of 5.2, encourage patient to lower intake of foods high in potassium like beans, bananas, potatoes and avocado. Patient also reports having a follow-up appointment with ENT on July 17 due to history of possible history allergic rhinitis. Review of Systems Constitutional Constitutional: Reports system reviewed and no additional complaints, except as documented Objective/Exam Narrative Physical exam: General: Alert, no acute distress.Conversational and non-toxic appearing. Skin: Warm, dry, intact. No rash or ecchymoses. Head: Normocephalic, atraumatic. Eye: Normal conjunctiva, PERRL. Nose: Right turbinate hypertrophy Throat: Oral mucosa moist. No obvious lesions in oropharynx. Cardiovascular: Regular rate and rhythm, no murmur, +S1/S2. Respiratory: Lungs are clear to auscultation, respirations unlabored, no crackles, no wheezing. Gastrointestinal: Soft, nontender, non-distended. No guarding or rebound tenderness. Extremities: No edema, no cyanosis, no clubbing.Right 1st digit Onychomycosis Neuro: Alert and oriented x3.No focal deficits observed. Conversant, moving all extremities. No overt cerebellar signs/incoordination. Psychiatric: Cooperative, appropriate affect Assessment & Plan Diagnosis / Problem List (1) Hypertriglyceridemia: Status: Acute Assessment & Plan: Patient had a recent hospital admission 11/30/2024 for acute pancreatitis secondary to hypertriglyceridemia. Patient stated previously had been started on a statin secondary to high hypertriglyceridemia but had stopped taking medication. Patient denied family history to hypertriglyceridemia. Patient reports stopping alcohol intake and reducing greasy food on regular basis. Lipid panel showed improved triglycerides at 234 mg/dL and cholesterol at 116 mg/dL. 06/13/25 triglyceride 146, cholesterol 91, LDL cholesterol 32, HDL cholesterol 30. Plan: - Reapet BMP and lipid panel ordered - Follow-up with PCP in 3 months for lab results - Complete course of Fenofibrate 160 mg QDAY - Decrease dosage from atorvastatin 80mg to 40mg PO HS - Encourage lifestyle and diet changes to cut back on sugar and refined carbs, avoid excess alcohol, continue increase physical activity (2) Onychomycosis: Status: Acute Assessment & Plan: Patient complaining of thickening of nails and discoloration after visiting Spa/Nail salon. Currently noted some mild improvement from last visit. 06/13/26 noted significant improvement form prior visit minor yellow discoloration Plan: - Encouraged self pedicure and hygiene regularly - Finish course of the Terbinafine - Consider requesting a podiatry referral again, If onychomycosis worsens (3) Hyperkalemia: Status: Acute Assessment & Plan: CHEM panel for 06/05/2024 potassium 5.2, mild hyperkalemia. Likely due to diet, patient reports no chest pain, palpitation, dizziness, weakness. Plan: - Encourage patient to decrease intake of beets, avocado, potatoes and bananas or any foods rther increase potassium in the blood. - Follow-up repeat CHEM panel at next visit. (4) Nasal turbinate hypertrophy: Status: Acute Assessment & Plan: The patient has a reports history of allergic rhinitis, for which she uses [id number] Flonase to manage symptoms. On examination, right-sided nasal turbinate hypertrophy was noted. There was no sinus tenderness observed. The patient denies experiencing headaches, rhinorrhea, sinus tenderness, or the sensation of nasal polyps. Plan: - follow-up appointment with ENT on June Orders: Orders Lipid Panel Today E78.1 - Pure hyperglyceridemia Basic Metabolic Panel Today E78.1 - Pure hyperglyceridemia Additional Plan Patient seen and assessed under supervision of attending physician . Yina Morgan MD PGY-1, Internal Medicine Please note: this document was transcribed using voice recognition technology; minor inaccuracies may be present. Office Procedures [facility] Level of Care Nursing/Assessment Patient Status: Established Patient Nursing Assessment/Reassessment: Medication Reconciliation, Update PMH in EMR and Vital Signs Coordination of Care: Complex Care and Chronic Disease 1-5, Complex Care/Chronic Disease 5 or more, Consent,records obtained, informed consent, Lab and Imaging orders, Results/Orders obtained and Staff clarify orders Established Patient Charge Established Patient Point Assignment: 125 Established Patient Point Charge: Level 4 (120-155)
== END 2025-06-13 13:34 | disposition home or self-care (01) ==
LOC: HODAHC 12:59
PROVIDERS: Supervising Provider Internal Medicine
DX: E78.1 Pure hyperglyceridemia (principal); B35.1 Tinea unguium; E87.5 Hyperkalemia; J34.3 Hypertrophy of nasal turbinates
CPT/HCPCS: 99214; G0463